=== PATIENT | female | born 1950 | race Caucasian/White ===

== ENCOUNTER 2019-08-03 14:49 | Inpatient (IN) | payer MEDICARE ==
[~2019-08-03] VITALS: Ht 152.4 cm; Wt 98.0 kg
--- OUTSIDE RECORDS SUMMARY | 2019-08-03 14:52 | XMS REPORT ---
Author Author [facility] Address Unknown Phone Unavailable Care Team Providers Care Ux Architect Name Role Phone MARCO SHAVER Unavailable Unavailable Problems This patient has no known problems. Allergies, Adverse Reactions, Alerts This patient has no known allergies or adverse reactions. Medications This patient has no known medications. Results Test Description Test Time Test Comments Text Results Atomic Results Result Comments Stress Test - Treadmill ONLY [place] [address] Patient Name : JACK HORTON MR #: [id number] : 1950 Age/Sex: 66/F Adm Physician : MARCO SHAVER MD Admit Date : Location : [place] Room/Bed : REPORT: Cardiology Report DATE OF STUDY: August 31, 2017 LEXISCAN NUCLEAR STRESS TEST INDICATION: Shortness of breath. TECHNIQUE: The patient was given 10 millicuries of Myoview. Resting images were obtained in the horizontal long axis, vertical long axis and short axis. Patient was then hooked up to the EKG machine, and Lexiscan was infused over 15 seconds. Immediately after completion of Lexiscan infusion, the patient was given 30 millicuries of Myoview. Stress images were obtained 30 minutes after completion of exercise in the horizontal long axis, vertical long axis and short axis. RESULTS 1. The resting EKG demonstrated normal sinus rhythm with some nonspecific ST and T wave changes. 2. There were no EKG changes and no symptoms during Lexiscan infusion. 3. There was some diminished perfusion to the anterior septum in both stress and rest. There was no reversible defect. 4. There were normal left ventricular size and function with an ejection fraction of 50%. CONCLUSION: The patient has a fixed defect in the anterior septum which most likely represents breast artifact. There was no reversible defect. There was no evidence of ischemia. The ejection fraction was 50%. Job#: [id number] Signature Date Dictated By: MARCO SHAVER MD Transcribed By: [facility] on 09/01/17 <Electronically signed by MARCO SHAVER MD><<Signature on File>>09/03/17 2029 COPY TO:
[2019-08-03] MEDS ORDERED: FAMOTIDINE 20 MG/2 ML VIAL IV STA (15:04)
[2019-08-03] MEDS ORDERED: SODIUM CHLORIDE 0.9% 1000ML 1,000 ML IV STA (15:04)
[2019-08-03 15:28] LABS: BASOPHILS % 0.5 % (0.0-1.0); EOSINOPHILS # (AUTO) 0.1 (0.0-0.4); EOSINOPHILS % 1.5 % (0.0-6.0); HEMATOCRIT 38.5 % (34.2-44.1); HEMOGLOBIN 12.4 g/dL (12.0-16.0); LYMPHOCYTES # (AUTO) 1.5 (1.0-3.2); LYMPHOCYTES % 23.6 % (18.0-39.1); MEAN CORPUSCULAR HEMOGLOBIN 31.2 pg (28-32); MEAN CORPUSCULAR HGB CONC 32.2 g/dL (31-35); MONOCYTES # (AUTO) 0.5 (0.2-0.8); MONOCYTES % 8.3 % (4.4-11.3); NEUTROPHILS # (AUTO) 4.3 (2.1-6.9); NEUTROPHILS % 65.6 % (38.7-80.0); PLATELET COUNT 292 x10e3/uL (140-360); RED BLOOD COUNT 3.97 x10e6/uL (3.6-5.1); RED CELL DISTRIBUTION WIDTH 14.2 % (11.7-14.4)
[2019-08-03] MEDS ORDERED: DEXTROSE 50% SYRINGE 50 ML IV PRN (15:30)
[2019-08-03] MEDS ORDERED: SODIUM CHLORIDE FLUSH 10 ML SYR INJ PRN (15:30)
[2019-08-03] MEDS ORDERED: DIGOXIN INJ 0.25 MG/ML 2 ML AMP IV ONE ×2 (15:30)
[2019-08-03 15:33] LABS: BILIRUBIN,URINE SMALL (NEGATIVE); CLARITY,URINE SL CLOUDY (CLEAR); COLOR,URINE YELLOW (YELLOW); KETONES,URINE NEGATIVE (NEGATIVE); LEUKOCYTE ESTERASE ,URINE NEGATIVE (NEGATIVE); NITRITE,URINE NEGATIVE (NEGATIVE); PROTEIN,URINE DIPSTICK 1+ (NEGATIVE); URINE UROBILINOGEN 1 mg/dL (0.2 - 1)
[2019-08-03 15:36] LABS: INR 1.12; PROTHROMBIN TIME 14.9 seconds (11.9-14.5)
[2019-08-03 15:37] LABS: PARTIAL THROMBOPLASTIN TIME 29.4 seconds (23.8-35.5)
[2019-08-03 15:45] LABS: ALBUMIN 3.3 g/dL (3.5-5.0); ANION GAP 13.5 mmol/L (8-16); BACTERIA,URINE MANY /HPF; CALCIUM 9.9 mg/dL (8.4-10.2); CREATININE, SERUM 1.19 mg/dL (0.57-1.11); EPITHELIAL CELLS,URINE MODERATE /LPF; MAGNESIUM 1.5 MG/DL (1.3-2.1); POTASSIUM 3.5 mmol/L (3.5-5.1); RENAL EPITHELIAL CELLS,URINE RARE
[2019-08-03 15:46] LABS: AMORPHOUS SEDIMENT,URINE MODERATE (FEW)
[2019-08-03 16:04] LABS: CREATINE KINASE MB 0.6 ng/mL (0-5.0); THYROID STIMULATING HORMONE 0.925 uIU/mL (0.350-4.940)
--- NOTE | 2019-08-03 17:02 | Diagnostic Imaging Report ---
EXAMINATION: CHEST SINGLE (PORTABLE) COMPARISON: None INDICATION: Hypotension, shortness of breath ^ERMD ORDER ^[id number] ^1600 ^Y DISCUSSION: Frontal view of the chest obtained at 1541 hours. HEART AND MEDIASTINUM: The heart is enlarged. Central pulmonary vasculature is prominent LINES: None. LUNGS: Lungs are well inflated. No loretta consolidation. No interstitial thickening. PLEURA: No pleural effusion or pneumothorax. BONES AND SOFT TISSUES: No focal osseous lesion. The soft tissues are normal. IMPRESSION: Cardiomegaly and mild vascular congestion. Signed by: Dr. Suleiman Briones MD on 08/03/2019 4:59 PM
[2019-08-03] MEDS ORDERED: DIGOXIN INJ 0.25 MG/ML 2 ML AMP IV SCH ×2 (18:00→21:30)
[2019-08-03] MEDS: INSULIN REGULAR, HUMAN 100 UNIT/1 ML 3ML VIAL SQ SCH ×2 (18:41→21:00)
[2019-08-03 21:05] VITALS: BP 107/57
[2019-08-03] MEDS: DIGOXIN INJ 0.25 MG/ML 2 ML AMP IV SCH (22:47)
[2019-08-03 23:38] VITALS: BP 107/57
[2019-08-03 23:47] VITALS: BP 107/57
[2019-08-04] VITALS (8 sets, daily range): BP systolic 100–121; BP diastolic 52–62
[2019-08-04] MEDS: DIGOXIN INJ 0.25 MG/ML 2 ML AMP IV SCH (03:30)
[2019-08-04 05:28] LABS: BASOPHILS % 0.3 % (0.0-1.0); EOSINOPHILS # (AUTO) 0.1 (0.0-0.4); EOSINOPHILS % 1.8 % (0.0-6.0); HEMATOCRIT 36.5 % (34.2-44.1); HEMOGLOBIN 11.5 g/dL (12.0-16.0); LYMPHOCYTES # (AUTO) 1.7 (1.0-3.2); LYMPHOCYTES % 26.5 % (18.0-39.1); MEAN CORPUSCULAR HGB CONC 31.5 g/dL (31-35); MEAN CORPUSCULAR VOLUME 98.4 fL (81-99); MONOCYTES # (AUTO) 0.5 (0.2-0.8); NEUTROPHILS # (AUTO) 3.9 (2.1-6.9); NEUTROPHILS % 62.8 % (38.7-80.0); PLATELET COUNT 268 x10e3/uL (140-360); RED BLOOD COUNT 3.71 x10e6/uL (3.6-5.1)
[2019-08-04 05:51] LABS: ALBUMIN 3.1 g/dL (3.5-5.0); ALBUMIN/GLOBULIN RATIO 1.1 (0.8-2.0); ANION GAP 14.6 mmol/L (8-16); CALCIUM 9.5 mg/dL (8.4-10.2); CREATININE, SERUM 1.08 mg/dL (0.57-1.11); POTASSIUM 3.6 mmol/L (3.5-5.1)
--- NOTE | 2019-08-04 07:21 | Diagnostic Imaging Report ---
EXAMINATION: CHEST SINGLE (PORTABLE) INDICATION: ^CHF ^[id number] ^0425 ^Y COMPARISON: 08/03/2019 FINDINGS: AP view TUBES and LINES: None. LUNGS: Lungs are well inflated. Pulmonary vascular congestion on mild interstitial edema. PLEURA: No significant pleural effusion or pneumothorax. HEART AND MEDIASTINUM: The cardiomediastinal silhouette is enlarged. BONES AND SOFT TISSUES: No acute osseous lesion. Soft tissues are unremarkable. UPPER ABDOMEN: No free air under the diaphragm. IMPRESSION: Enlarged cardiac silhouette, pulmonary vascular congestion, and mild interstitial edema, not significantly changed from prior exam. Signed by: Dr. Gil Pittman MD on 08/04/2019 7:17 AM
[2019-08-04] MEDS: INSULIN REGULAR, HUMAN 100 UNIT/1 ML 3ML VIAL SQ SCH ×4 (07:30→21:00)
--- NOTE | 2019-08-04 08:13 | NUR ---
H&P cc: rapid HR HPI: 68yoF, PCP , developed A.fib with RVR. Pt also conplained of SOB. [facility]. PMH: Severe obesity, CHF, DM2, peripheral edema PSHx: stomach, c-sec, hysterectomy Allergies; see MAR FH/SH; single; no cigs meds; see MAR ROS; no f/c/s/N/V/D/HYDE/vision changes/back pain/dizziness/skin rash. v/s; revd PE: tired appearing anicteric ns1s2 Slightly reduced breath sounds soft nt nd no e/t a&ox3; fair skin dry n. affect labs/meds revd A/P: 68yoF A.fib with RVR KALEB AECHF Severe obesity BMI 42.2 Pulmonary edema PLAN dig; f/u cardio eval; lovenox; bid check echo pepcid on AC Fer Robins MD, PhD
[2019-08-04] MEDS: FAMOTIDINE 20 MG TAB PO SCH ×2 (09:00→16:30)
[2019-08-04] MEDS: DIGOXIN 0.25 MG TAB PO SCH (09:00)
[2019-08-04] MEDS: ENOXAPARIN INJ 80 MG/0.8 ML SYR SC SCH ×2 (09:00→21:40)
[2019-08-04 09:08] LABS: CHOL/HDL RATIO 5.3 (3.0-3.6)
--- NOTE | 2019-08-04 09:13 | NUR ---
Nutrition Screen Note RD Recommendation for Physician: -Continue current diet per MD. -Consider ADA 1800 calorie carb diet pending glucose trends. Plan of Care: RD following, monitoring for tolerance and adequacy. Nutrition reason for involvement: Nutrition Risk Trigger-MST 2 Primary Diagnose(s): Afib PMH: HTN, DM Ht: 60 in Wt:216 lb BMI: 42.2 kg/m2 IBW: [address] Assessment: 08/04: 68 YOF admitted for Afib with PMH listed above. Pt was seen d/t MST of 2. Pt was seen consuming her breakfast. Pt reported she really enjoyed the meatloaf and potatoes last night, suggesting the pt is meeting energy and protein needs. Pt denied poor appetite and any unintentional weight loss recently, no past weights in EMR. Pt reported no N/V/C/D/chewing or swallowing issues as well as any food allergies. Pt had no other questions or concerns. Pt just arrived yesterday, there are no notes written in EMR yet. LBM: 08/04. Chart reviewed. Labs and meds reviewed. A1c is pending. Pt is on insulin. Will continue to monitor. Current Diet: cardiac Malnutrition Evaluation (08/04) The patient does not meet criteria for a specified degree of malnutrition at this time. Will re-evaluate at follow-up as appropriate. Diet Education Needs Assessment: Diet education not indicated. Nutrition Care Level: low Signed: Chantell Cortez, RD, LD
[2019-08-04] MEDS ORDERED: ACETAMINOPHEN 325 MG TAB PO PRN (11:00)
[2019-08-04 13:09] LABS: CREATINE KINASE MB 1.2 ng/mL (0-5.0)
[2019-08-04] MEDS ORDERED: ATENOLOL50 MG PO (14:55)
[2019-08-04] MEDS ORDERED: FUROSEMIDE40 MG PO (14:55)
[2019-08-04] MEDS ORDERED: CALCIUM CITRAT1 EA10 PO (14:55)
[2019-08-04] MEDS ORDERED: LOVASTATIN10 MG PO (14:55)
[2019-08-04] MEDS ORDERED: LEVOTHYROXINE75 MCG PO (14:55)
[2019-08-04] MEDS ORDERED: METFORMIN HCL500 MG PO (14:55)
[2019-08-04] MEDS ORDERED: MELOXICAM7.5 MG PO (14:55)
[2019-08-04] MEDS ORDERED: SERTRALINE HCL50 MG PO (14:55)
[2019-08-04] MEDS ORDERED: POTASSIUM CHLO10 ME1 PO (14:56)
--- NOTE | 2019-08-04 18:01 | NUR ---
Rounds by [employer] Forest[employer] Supervisor and started patient on lasix and a beta lauro, EF 35% from echo, educated on cardiac diet and dietary precautions, will monitor, call light within reach, no c/o pains, still in Afib but no adverse events, rate controlled on Digoxin by mouth, no SOB, participated with PT and with some low saturation with exertion but 95% at rest, will monitor.
[2019-08-05] VITALS (9 sets, daily range): BP systolic 106–121; BP diastolic 56–81
--- NOTE | 2019-08-05 01:32 | Consultation ---
DATE OF CONSULTATION: 08/04/2019 Cardiology Consult Note REASON FOR CONSULT: Atrial fibrillation with rapid ventricular response and shortness of breath. CHIEF COMPLAINT: Palpitations and shortness of breath. HISTORY OF PRESENT ILLNESS: The patient is a 68-year-old female with a history of chronic systolic CHF, EF 30% and paroxysmal atrial fibrillation, who was sent to the ER from the office due to atrial fibrillation with RVR and blood pressures in the 70s systolic. She was treated with IV digoxin and her heart rate improved significantly. Troponin is negative. BNP was over 1000. Mild KALEB, which has now resolved. She denies any chest pain or shortness of breath. Feeling much better today. Asking us if she can go home. Blood pressure improved to about 100 to 120 systolic. REVIEW OF SYSTEMS: As per HPI, otherwise negative. OUTPATIENT MEDICATIONS: Reviewed. Please see MAR. ALLERGIES: NO KNOWN DRUG ALLERGIES. SOCIAL HISTORY: She does not smoke, drink, or abuse drugs. FAMILY HISTORY: Noncontributory. OBJECTIVE: VITAL SIGNS: Temperature afebrile, pulse 71, respiratory rate 16, blood pressure 121/57, and saturating 97% on 3 L nasal cannula. GENERAL: Well developed, well nourished, in no acute distress. CARDIOVASCULAR: Irregular rate and rhythm. No murmurs, rubs, or gallops. LUNGS: Clear to auscultation bilaterally. ABDOMEN: Soft, nontender, and nondistended. NEURO AND PSYCH: Alert and oriented to person, place, and time. Normal affect. INPATIENT MEDICATIONS: Reviewed. LABORATORY DATA: Reviewed. TELEMETRY DATA: Reviewed. Shows rate controlled atrial fibrillation. IMAGING DATA: Reviewed. Chest x-ray showed an enlarged cardiovascular silhouette and pulmonary vascular congestion. ASSESSMENT AND PLAN: 1. Atrial fibrillation with rapid ventricular response. 2. Acute on chronic systolic heart failure exacerbation. 3. Pulmonary edema. 4. Hypertension. PLAN: Atrial fibrillation is now better controlled after IV digoxin. Continue oral digoxin. Resume her home atenolol, metoprolol-XL. Gentle IV furosemide for diuresis now that her blood pressure is improved. Echocardiogram has been performed. Results are pending. Thank you for this consult. We will continue to follow. MD KAREN Blackmon/ANTWON /[id number]
[2019-08-05] MEDS: FAMOTIDINE 20 MG TAB PO SCH ×2 (07:30→16:59)
[2019-08-05] MEDS: INSULIN REGULAR, HUMAN 100 UNIT/1 ML 3ML VIAL SQ SCH ×4 (07:30→21:00)
--- NOTE | 2019-08-05 07:53 | NUR ---
Patient alert and responsive, checked off oxygen this morning and desaturation to 87/88% on RA with exertion, some shortness of breath which resolves with rest, will monitor.
--- NOTE | 2019-08-05 08:15 | NUR ---
IM- progress note O/N no events ROS; no f/c/s/N/V/D/HYDE/vision changes/back pain/dizziness/skin rash. v/s; revd PE: tired appearing anicteric ns1s2 Slightly reduced breath sounds soft nt nd no e/t a&ox3; fair skin dry n. affect labs/meds revd A/P: 68yoF A.fib with RVR KALEB AECHF Severe obesity BMI 42.2 Pulmonary edema PLAN dig; f/u cardio eval; lovenox; bid check echo pepcid on AC 08/05 Hba1c/LDL 5.7/90. DM well controlled; continue diuresis. Change statin; Fer Robins MD, PhD
[2019-08-05] MEDS: LEVOTHYROXINE SODIUM 75 MCG TAB PO SCH (08:30)
[2019-08-05] MEDS: SERTRALINE HCL 50 MG TAB PO SCH (09:00)
[2019-08-05] MEDS: ENOXAPARIN INJ 80 MG/0.8 ML SYR SC SCH ×2 (09:00→21:30)
[2019-08-05] MEDS ORDERED: METOPROLOL SUCCINATE 25 MG TAB XL PO SCH (09:00)
[2019-08-05] MEDS: DIGOXIN 0.25 MG TAB PO SCH (09:00)
[2019-08-05] MEDS ORDERED: FUROSEMIDE INJ 10 MG/ML 2 ML VIAL IV SCH (09:00)
[2019-08-05 10:13] LABS: BASOPHILS % 0.6 % (0.0-1.0); EOSINOPHILS # (AUTO) 0.2 (0.0-0.4); EOSINOPHILS % 2.5 % (0.0-6.0); HEMATOCRIT 38.2 % (34.2-44.1); HEMOGLOBIN 11.9 g/dL (12.0-16.0); LYMPHOCYTES # (AUTO) 1.7 (1.0-3.2); LYMPHOCYTES % 26.3 % (18.0-39.1); MEAN CORPUSCULAR HEMOGLOBIN 31.2 pg (28-32); MEAN CORPUSCULAR HGB CONC 31.2 g/dL (31-35); MEAN CORPUSCULAR VOLUME 100.3 fL (81-99); MONOCYTES # (AUTO) 0.6 (0.2-0.8); MONOCYTES % 9.8 % (4.4-11.3); NEUTROPHILS # (AUTO) 3.8 (2.1-6.9); NEUTROPHILS % 59.7 % (38.7-80.0); PLATELET COUNT 276 x10e3/uL (140-360); RED BLOOD COUNT 3.81 x10e6/uL (3.6-5.1); RED CELL DISTRIBUTION WIDTH 14.1 % (11.7-14.4)
[2019-08-05 10:30] LABS: ANION GAP 15.1 mmol/L (8-16); CALCIUM 9.7 mg/dL (8.4-10.2); CREATININE, SERUM 1.02 mg/dL (0.57-1.11); POTASSIUM 4.1 mmol/L (3.5-5.1)
[2019-08-05 12:07] LABS: EOSINOPHILS % (MANUAL) 9 % (0-7); LYMPHOCYTES % (MANUAL) 25 % (19-48); MONOCYTES % (MANUAL) 9 % (3.4-9.0); NEUTROPHILS % (MANUAL) 55 % (40-74); RBC MORPHOLOGY COMMENT ABNORMAL
[2019-08-05 12:08] LABS: ANISOCYTOSIS SLIGHT; PLATELET ESTIMATE ADEQUATE; PLATELET MORPHOLOGY COMMENT NORMAL
--- NOTE | 2019-08-05 15:25 | Progress Note ---
DATE: 08/05/2019 Cardiology Progress Note SUBJECTIVE: The patient denies chest pain. She is complaining of dyspnea on exertion. OBJECTIVE: VITAL SIGNS: Temperature of 98.2 degrees, pulse 87, respiratory rate 18, blood pressure 121/81, and oxygen saturation 97% on room air. GENERAL: Awake, alert, in no acute distress. LUNGS: Clear to auscultation bilaterally. No wheezes or crackles. CARDIOVASCULAR: Normal rate. Irregularly irregular. No murmur. Normal S1, S2. ABDOMEN: Soft, nontender. EXTREMITIES: 1+ pitting edema. CARDIAC MEDICATIONS: 1. Furosemide 20 mg IV daily. 2. Metoprolol succinate 25 mg p.o. daily. 3. Digoxin 0.25 mg p.o. daily. 4. Levothyroxine 75 mcg p.o. daily. 5. Atorvastatin 40 mg p.o. at bedtime. LABORATORY DATA: WBC 6.3, hemoglobin 11.9, hematocrit 38.2, platelets 276. Sodium 142, potassium 4.1, chloride 108, CO2 of 24, BUN 13, creatinine 1.02. TELEMETRY: Atrial fibrillation. IMPRESSION: 1. Atrial fibrillation. 2. Ycgnb-[id number]-tfymmyw systolic heart failure. 3. Hypertension. RECOMMENDATIONS: Continue current cardiac medications. Increase metoprolol. Increase frequency of IV Lasix. Thank you for this consult. We will continue to follow. Xuan Chandler MD ABS/MODL /[id number]
[2019-08-05] MEDS: FUROSEMIDE INJ 10 MG/ML 2 ML VIAL IV SCH (16:59)
[2019-08-05] MEDS: ATORVASTATIN 20 MG TAB PO SCH (21:30)
--- NOTE | 2019-08-05 22:00 | NUR ---
Assessment done.no resp.distress.no pain voiced.iv to right ac #18g is patent.bed locked and in lowest position.phone and call light within reach.instructed to al for assistance as needed.
[2019-08-06] VITALS (8 sets, daily range): BP systolic 99–115; BP diastolic 58–63
[2019-08-06] MEDS: LEVOTHYROXINE SODIUM 75 MCG TAB PO SCH (05:48)
--- NOTE | 2019-08-06 06:58 | NUR ---
Bed side shift report given to the oncoming Rn.stable condition.
--- NOTE | 2019-08-06 07:12 | NUR ---
Received patient and a/ox3, in bed, no resp distress, call light within reach, o2 in place at 2 L, will monitor.
[2019-08-06] MEDS: FAMOTIDINE 20 MG TAB PO SCH ×2 (07:30→16:30)
[2019-08-06] MEDS: INSULIN REGULAR, HUMAN 100 UNIT/1 ML 3ML VIAL SQ SCH ×4 (07:30→20:56)
[2019-08-06] MEDS: ENOXAPARIN INJ 80 MG/0.8 ML SYR SC SCH ×2 (09:31→21:16)
[2019-08-06] MEDS: FUROSEMIDE INJ 10 MG/ML 2 ML VIAL IV SCH ×2 (09:31→17:00)
[2019-08-06] MEDS: DIGOXIN 0.25 MG TAB PO SCH (09:31)
[2019-08-06] MEDS: METOPROLOL SUCCINATE 25 MG TAB XL PO SCH (09:31)
[2019-08-06] MEDS: SERTRALINE HCL 50 MG TAB PO SCH (09:31)
[2019-08-06] MEDS ORDERED: ONDANSETRON HCL INJ 2MG/ML 2ML 2 MG/ML VIAL IV PRN (11:00)
[2019-08-06 14:56] LABS: ANION GAP 16.2 mmol/L (8-16); CREATININE, SERUM 1.3 mg/dL (0.57-1.11); POTASSIUM 4.2 mmol/L (3.5-5.1)
--- NOTE | 2019-08-06 16:01 | Progress Note ---
DATE: 08/06/2019 Cardiology Progress Note SUBJECTIVE: The patient denies chest pain or shortness of breath. OBJECTIVE: VITAL SIGNS: Temperature 95.7 degrees, pulse 79, respiratory rate 18, blood pressure 104/58, oxygen 95% on room air. GENERAL: Awake, alert in no acute distress. LUNGS: Clear to auscultation bilaterally. No wheezes or crackles. CARDIOVASCULAR: Normal rate, irregularly irregular. No murmur. Normal S1, S2. ABDOMEN: Soft, nontender. EXTREMITIES: Trace edema. CARDIAC MEDICATIONS: Metoprolol succinate 50 mg p.o. daily, furosemide 20 mg IV b.i.d., enoxaparin 80 mg subcu q.12 hours, digoxin 0.25 mg p.o. daily, levothyroxine 75 mcg p.o. daily, atorvastatin 40 mg p.o. at bedtime. LABORATORY DATA: None today. TELEMETRY: Atrial fibrillation. IMPRESSION: 1. Atrial fibrillation. 2. Acute on chronic systolic heart failure. 3. Hypertension. RECOMMENDATIONS: Continue current cardiac medications. Monitor closely on telemetry. Follow creatinine. Replete electrolytes. Thank you for this consult. We will continue to follow. Xuan Chandler MD ABS/MODL /[id number]
--- NOTE | 2019-08-06 16:34 | NUR ---
IM- progress note O/N no events ROS; no f/c/s/N/V/D/HYDE/vision changes/back pain/dizziness/skin rash. v/s; revd PE: tired appearing anicteric ns1s2 Slightly reduced breath sounds soft nt nd no e/t a&ox3; fair skin dry n. affect labs/meds revd A/P: 68yoF A.fib with RVR KALEB AECHF Severe obesity BMI 42.2 Pulmonary edema PLAN dig; f/u cardio eval; lovenox; bid check echo pepcid on AC 08/05 Hba1c/LDL 5.7/90. DM well controlled; continue diuresis. Change statin; 08/06 HR controlled; doing ok; still desats on exertion; continue diuresis; get renal U/S. Fer Robins MD, PhD
--- NOTE | 2019-08-06 19:10 | NUR ---
BED SIDE SHIFT REPORT TAKEN FROM MORNING ALYCE IN THE BED.STABLE CONDITION.
--- NOTE | 2019-08-06 20:28 | Diagnostic Imaging Report ---
EXAM: Renal Ultrasound INDICATION: ^KALEB vs CKD COMPARISON: None TECHNIQUE: Transverse and longitudinal images of the kidneys and bladder were obtained. FINDINGS: Right Kidney: Size: 9 cm Echogenicity: Normal Parenchymal thickness: Normal Collecting system: No hydronephrosis Stones: None Cyst/Mass: None Left Kidney: Size: 10.8 cm Echogenicity: Normal Parenchymal thickness: Normal Collecting system: No hydronephrosis Stones: None Cyst/Mass: None Bladder: Collapsed by a Mcintosh catheter in place. IMPRESSION: Unremarkable renal ultrasound exam. Signed by: Dr. Gil Pittman MD on 08/06/2019 8:25 PM
[2019-08-06] MEDS: ATORVASTATIN 20 MG TAB PO SCH (21:16)
[2019-08-07] VITALS: BP 106/68
--- NOTE | 2019-08-07 00:26 | NUR ---
Sleeping in the bed.Us renal done.no resp.distress.no pain voiced.bed locked and in lowest position.phone and call light within reach.instructed to call for assistance as needed.
[2019-08-07 04:00] VITALS: BP 114/66
[2019-08-07] MEDS: LEVOTHYROXINE SODIUM 75 MCG TAB PO SCH (05:46)
--- NOTE | 2019-08-07 07:00 | NUR ---
BEDSIDE ROUNDS COMPLETE NO DISTRESS NOTED, UPDATED ON POC VOICED UNDERSTANDING, DENIES PAIN AT THIS TIME, R AC 18G NO SS OF INFILTRATION NOTED, NO OTHER CO VOICED CALL LIGHT IN REACH WILL CONTINUE TO MONITOR
--- NOTE | 2019-08-07 07:00 | NUR ---
Bed side shift report given to the oncoming Rn.stable condition.
--- NOTE | 2019-08-07 07:29 | NUR ---
D/C summary Principal Dx: A.fib with RVR KALEB AECHF Pulmonary edema Likely CKD3 (normal renal U/S.) Secondary Dx: Severe obesity BMI 42.2 PLAN dig; f/u cardio eval; lovenox; bid check echo pepcid on AC 08/05 Hba1c/LDL 5.7/90. DM well controlled; continue diuresis. Change statin; 08/06 HR controlled; doing ok; still desats on exertion; continue diuresis; get renal U/S. 08/07 renal U/S unremarkable; check renal fn with BMP; cont care; d/c home f/u pcp 1 week and 1 week stable d/c>35mins Fer Robins MD, PhD
[2019-08-07] MEDS: INSULIN REGULAR, HUMAN 100 UNIT/1 ML 3ML VIAL SQ SCH ×2 (07:30→11:30)
--- NOTE | 2019-08-07 07:50 | NUR ---
PT AMBULATED IN HALLS PER MD REQUEST, O2 SATS WHILE AMBULATING 88%, HR 88-103, ONCE PT STOPS AMBULATING O2 SATS RECOUPE TO 98% RA, INFORMED DR MCDONOUGH, NO NEW ORDERS AT THIS TIME.
[2019-08-07] MEDS ORDERED: LANOXIN250 MCG PO (08:09)
[2019-08-07] MEDS ORDERED: TOPROL XL25 MG PO (08:09)
[2019-08-07] MEDS ORDERED: LIPITOR20 MG PO (08:09)
[2019-08-07] MEDS ORDERED: ELIQUIS5 M1 PO (08:11)
[2019-08-07 08:29] VITALS: BP 123/67
[2019-08-07] MEDS: FAMOTIDINE 20 MG TAB PO SCH (08:32)
[2019-08-07] MEDS: SERTRALINE HCL 50 MG TAB PO SCH (08:33)
[2019-08-07] MEDS: ENOXAPARIN INJ 80 MG/0.8 ML SYR SC SCH (08:33)
[2019-08-07] MEDS: FUROSEMIDE INJ 10 MG/ML 2 ML VIAL IV SCH (08:33)
[2019-08-07] MEDS: DIGOXIN 0.25 MG TAB PO SCH (08:34)
[2019-08-07] MEDS: METOPROLOL SUCCINATE 25 MG TAB XL PO SCH (08:34)
[2019-08-07 08:37] VITALS: BP 123/67
[2019-08-07 09:08] LABS: ANION GAP 16.4 mmol/L (8-16); CALCIUM 10.2 mg/dL (8.4-10.2); CREATININE, SERUM 1.14 mg/dL (0.57-1.11); POTASSIUM 4.4 mmol/L (3.5-5.1)
--- NOTE | 2019-08-07 09:54 | NUR ---
PAGED DR LEWIS RE: CLEARANCE FOR DISCHARGE AWAITING CALLBACK
--- NOTE | 2019-08-07 10:09 | NUR ---
SPOKE WITH DR MCDONOUGH RE: BUN RESULTS PER REQUESTED, INFORMED NURSE TO HAVE PT FOLLOW UP WITH DR BOX OUTPATIENT DUE TO GFR OF 47 WILL PROVIDE INFORMATION. STILL AWAITING FOR DR LEWIS TO RETURN CALL
--- NOTE | 2019-08-07 11:15 | NUR ---
DR DEBBIE JAY FOR DISCHARGE CLEARANCE PER ORDERED
[2019-08-07 12:42] VITALS: BP 126/60
== END 2019-08-07 15:23 | disposition home or self-care (01) | DRG 308 ==
LOC: ER 14:49 → ERHOLD 15:28 → MED/SURG 21:15
PROVIDERS: ADMIT Internal Medicine; ATTEND Internal Medicine
DX: I48.91 Unspecified atrial fibrillation (principal); I50.23 Acute on chronic systolic (congestive) heart failure; N18.4 Chronic kidney disease, stage 4 (severe); N17.9 Acute kidney failure, unspecified; I13.0 Hypertensive heart and chronic kidney disease with heart failure and stage 1 through stage 4 chronic kidney disease, or unspecified chronic kidney disease; Z68.41 Body mass index [BMI] 40.0-44.9, adult; E66.01 Morbid (severe) obesity due to excess calories
CPT/HCPCS: 36415; 71045; 76770; 80048; 80053; 80061; 81001; 82550; 82553; 82948; 83036; 83690; 83735; 83880; 84443; 84484; 85025; 85610; 85730; 87086; 93005; 93306; 99284; J1160; J1650; J1940; J2405; J7030

== ENCOUNTER 2019-09-07 15:24 | Inpatient (IN) | payer MEDICARE ==
[~2019-09-07] VITALS: Ht 152.4 cm; Wt 93.9 kg
[~2019-09-07 15:24] MED LIST: ATENOLOL50 MG PO; CALCIUM CITRAT1 EA10 PO; ELIQUIS5 M1 PO; FUROSEMIDE40 MG PO; LANOXIN250 MCG PO; LEVOTHYROXINE75 MCG PO; LIPITOR20 MG PO; LOVASTATIN10 MG PO; MELOXICAM7.5 MG PO; METFORMIN HCL500 MG PO; POTASSIUM CHLO10 ME1 PO; SERTRALINE HCL50 MG PO; TOPROL XL25 MG PO
[2019-09-07 19:26] LABS: EOSINOPHILS % 0.2 % (0.0-6.0); HEMATOCRIT 40.9 % (34.2-44.1); HEMOGLOBIN 12.9 g/dL (12.0-16.0); LYMPHOCYTES % 2.2 % (18.0-39.1); MEAN CORPUSCULAR HEMOGLOBIN 30.4 pg (28-32); MEAN CORPUSCULAR HGB CONC 31.5 g/dL (31-35); MEAN CORPUSCULAR VOLUME 96.2 fL (81-99); MONOCYTES % 0.6 % (4.4-11.3); NEUTROPHILS % 4.2 % (38.7-80.0); PLATELET COUNT 257 x10e3/uL (140-360); RED BLOOD COUNT 4.25 x10e6/uL (3.6-5.1)
[2019-09-07 19:42] LABS: INR 1.16; PARTIAL THROMBOPLASTIN TIME 30.8 seconds (23.8-35.5); PROTHROMBIN TIME 15.4 seconds (11.9-14.5)
[2019-09-07 19:47] LABS: CREATINE KINASE MB 2.8 ng/mL (0-5.0)
[2019-09-07 20:12] LABS: POTASSIUM 3.2 mmol/L (3.5-5.1)
[2019-09-07 20:13] LABS: ANION GAP 18.2 mmol/L (8-16); CALCIUM 8.7 mg/dL (8.4-10.2); CREATININE, SERUM 1.09 mg/dL (0.57-1.11)
[2019-09-07 20:15] LABS: ALBUMIN 3.7 g/dL (3.5-5.0); ALBUMIN/GLOBULIN RATIO 1.1 (0.8-2.0)
--- NOTE | 2019-09-07 20:41 | Diagnostic Imaging Report ---
EXAM: CHEST 2 VIEWS DATE: 09/07/2019 6:41 PM INDICATION: ^SEPSIS ^Y COMPARISON: Chest x-ray, 08/04/2019 FINDINGS: Lines and tubes: None Cardiac silhouette is moderately enlarged. There is mild central pulmonary vascular prominence. No peripheral consolidation or pleural effusion. Upper abdomen unremarkable. No acute bony abnormality. IMPRESSION: Cardiomegaly and central pulmonary vascular prominence again noted. Signed by: Dr. Jairon Lorenzo M.D. on 09/07/2019 8:38 PM
[2019-09-07] MEDS ORDERED: SODIUM CHLORIDE 0.9% 500ML 1,000 ML ONE (21:02)
[2019-09-07] MEDS ORDERED: ASPIRIN 81 MG CHEW TAB PO ONE (21:15)
[2019-09-07 21:23] LABS: CREATINE KINASE MB 2.7 ng/mL (0-5.0)
--- NOTE | 2019-09-07 22:53 | Diagnostic Imaging Report ---
EXAM: CTA Chest WITH contrast (PE protocol) 09/07/2019 8:48 PM INDICATION: sob COMPARISON: Chest radiograph 09/07/2019 TECHNIQUE: Chest was scanned utilizing a multidetector helical scanner from the lung apex through the level of the adrenal glands without administration of IV contrast. Coronal and sagittal reformations were obtained. Pulmonary embolism protocol was performed. Specific attention to the pulmonary arteries. Thin slice reformats were created. IV CONTRAST: 72 mL of Isovue 370 COMPLICATIONS: None RADIATION DOSE: Total DLP: 588 mGy*cm Estimated effective dose: (DLP x 0.014 x size factor) mSv CTDIvol has been reviewed. It is below the limits set by the Radiation Protocol Committee (RPC). Dose modulation, iterative reconstruction, and/or weight based adjustment of the mA/kV was utilized to reduce the radiation dose to as low as reasonably achievable. FINDINGS: LINES/ TUBES: None. LUNGS AND AIRWAYS: Mosaic attenuation throughout the lungs. Mild interlobular septal thickening in the lower lungs. Mild smooth bronchial wall thickening primarily in the lower lungs, with scattered foci of endobronchial mucus plugging. PLEURA: The pleural spaces are clear. HEART AND MEDIASTINUM: The thyroid gland is normal. Moderate cardiomegaly, with by atrial and left ventricular dilation Left main coronary artery calcifications. Trace pericardial fluid. Dilated main pulmonary artery, 3.7 cm in diameter. Prominent pulmonary vasculature. Aortic valve calcifications. UPPER ABDOMEN: Intact gastric surgical changes. Small hiatal hernia with mild distal esophageal wall thickening. BONES: There are degenerative changes in the thoracic spine. SOFT TISSUES: Unremarkable. IMPRESSION: 1. Moderate cardiomegaly, trace pericardial effusion, with pulmonary hypertension. Left main coronary artery calcific atherosclerosis. 2. Lung findings can be due to pulmonary edema and/or distal airway disease. 3. Mild findings of bronchitis. 4. Small hiatal hernia with mild distal esophagitis. 5. No pulmonary embolism. Signed by: Gamal Mtz DO on 09/07/2019 10:49 PM
[2019-09-07 23:35] LABS: BILIRUBIN,URINE NEGATIVE (NEGATIVE); CLARITY,URINE SL CLOUDY (CLEAR); COLOR,URINE YELLOW (YELLOW); KETONES,URINE NEGATIVE (NEGATIVE); LEUKOCYTE ESTERASE ,URINE NEGATIVE (NEGATIVE); NITRITE,URINE NEGATIVE (NEGATIVE); PROTEIN,URINE DIPSTICK NEGATIVE (NEGATIVE); URINE UROBILINOGEN 1 mg/dL (0.2 - 1)
[2019-09-08] VITALS (8 sets, daily range): BP systolic 83–110; BP diastolic 46–69
[2019-09-08 00:08] LABS: BACTERIA,URINE FEW /HPF; EPITHELIAL CELLS,URINE FEW /LPF; RBC,URINE 0-5 /HPF (0-5); WBC,URINE (MAN) 0-5 /HPF (0-5)
[2019-09-08 01:00] LABS: CHOL/HDL RATIO 3.4 (3.0-3.6)
[2019-09-08 01:11] LABS: CREATINE KINASE MB 2.7 ng/mL (0-5.0)
--- NOTE | 2019-09-08 01:20 | NUR ---
RECEIVED PATIENT FROM ED AT THIS TIME. PATIENT ARRIVED VIA STRETCHER, BUT AMBULATED TO BED INDEPENDENTLY, STEADY GAIT NOTED. NO PAIN REPORTED. NO S&S OF DISTRESS NOTED. LUNG SOUNDS CLEAR. BOWEL SOUNDS ACTIVE, LAST BM YESTERDAY MORNING (09/08). NO EDEMA NOTED. SKIN IS INTACT. TELE BOX 29, PATIENT RUNNING AFIB - 58. NO NEEDS EXPRESSED AT THIS TIME. PATIENT ORIENTED TO ROOM AND CALL LIGHT SYSTEM. BED LOCKED IN LOWEST POSITION, SIDE RAILS UPX2, CALL LIGHT IN REACH.
[2019-09-08] MEDS ORDERED: MELOXICAM7.5 MG PO (01:39)
[2019-09-08] MEDS ORDERED: ENTRESTO 24 MG1 EACH PO (01:42)
[2019-09-08] MEDS ORDERED: LOVASTATIN10 MG PO (01:42)
[2019-09-08] MEDS ORDERED: FUROSEMIDE40 MG PO (01:42)
[2019-09-08] MEDS ORDERED: ELIQUIS5 MG PO (01:42)
[2019-09-08] MEDS ORDERED: DIGOXIN250 MCG PO (01:42)
[2019-09-08] MEDS ORDERED: METOPROLOL SUCC25 MG PO (01:42)
[2019-09-08] MEDS ORDERED: IOPAMIDOL 370 MG/ML 200 ML INFUS..BTL INJ ONE (03:09)
[2019-09-08] MEDS ORDERED: SODIUM CHLORIDE 0.9% 100 ML ONE (03:09)
--- NOTE | 2019-09-08 06:12 | NUR ---
H&P cc: rapid HR HPI: 68yoF, PCP , developed rapid heart rate, low BP and SOB with ambulatoin; SBP 70/40 at home; Some dizziness. PMH: Severe obesity, Disastolic CHF, DM2, peripheral edema, KALEB, PAF, CKD3? PSHx: stomach, c-sec, hysterectomy Allergies; see MAR FH/SH; single; no cigs meds; see MAR ROS; no f/c/s/N/V/D/HYDE/vision changes/back pain/dizziness/skin rash. v/s; revd PE: tired appearing anicteric ns1s2 Mod BS soft nt nd no e/t a&ox3; fair skin dry n. affect labs/meds revd A/P: 68yoF Elevated troponins PAF CKD3 due to DM2 Morbid obesity BMI 40.4 Hypotension Diastolic CHF PLAN Trend enzymes; Last echo normal LVEF hab1c/lipids check Dig level Heparin/pepcid Fer Robins MD, PhD
[2019-09-08] MEDS ORDERED: HEPARIN SOD (PORCINE) 5,000 UNIT/ML VIAL SC SCH (06:45)
[2019-09-08 06:57] LABS: CREATINE KINASE MB 1.5 ng/mL (0-5.0)
--- NOTE | 2019-09-08 07:00 | NUR ---
bedside shift report received pt in stable condition, denies chest pain at this time, r ac 20g and l fa 20g no ss of infiltration noted, no other co voiced call light in reach will continue to monitor
[2019-09-08] MEDS ORDERED: NON-FORMULARY MEDICATION (Lovastatin 10 MG) PO SCH (09:00)
[2019-09-08] MEDS ORDERED: FUROSEMIDE 40 MG TAB PO SCH (09:00)
[2019-09-08] MEDS: FAMOTIDINE 20 MG TAB PO SCH ×2 (09:50→17:02)
[2019-09-08] MEDS: LEVOTHYROXINE SODIUM 75 MCG TAB PO SCH (10:19)
[2019-09-08] MEDS: APIXABAN 5 MG TABLET PO SCH (10:19)
[2019-09-08] MEDS: ASPIRIN 325 MG TAB EC PO SCH (10:19)
[2019-09-08] MEDS: FUROSEMIDE 20 MG TAB PO SCH (10:20)
[2019-09-08] MEDS: SERTRALINE HCL 50 MG TAB PO SCH (10:20)
--- NOTE | 2019-09-08 19:21 | NUR ---
WALKING ROUNDS PERFORMED, RECEIVED PT LAYING SEMI FOWLERS IN BED, AAOX3, RR EVEN AND NON-LABORED, ON ROOM AIR. NO S/SX OF DISTRESS NOTED. LEFT PT LAYING SEMI FOWLERS IN BED, BED IN LOW LOCKED POSITION, SIDE RAILS UPX2, CALL LIGHT AND PHONE WITHIN REACH.
--- NOTE | 2019-09-08 20:45 | NUR ---
REPORT GIVEN TO JOSPEH FOR CONTINUED CARE OF PATIENT.
[2019-09-08] MEDS ORDERED: ATORVASTATIN 20 MG TAB PO SCH (21:00)
[2019-09-08] MEDS: ATORVASTATIN 40 MG TAB PO SCH (21:52)
[2019-09-09] VITALS (7 sets, daily range): BP systolic 96–107; BP diastolic 48–63
--- NOTE | 2019-09-09 00:42 | Consultation ---
DATE OF CONSULTATION: Cardiology Consultation HISTORY OF PRESENT ILLNESS: This is a 68-year-old woman with history of diastolic congestive heart failure, paroxysmal atrial fibrillation, morbid obesity, chronic kidney disease, and diabetes mellitus, who presented from her PCP due to low heart rate and low blood pressure. She reports some shortness of breath. Denies any typical angina. Upon arrival here, she was noted to have elevated troponins with a peak level of 0.504. REVIEW OF SYSTEMS: A 12-point review of system was conducted, is negative except as stated above in the HPI. PAST MEDICAL HISTORY: As stated in HPI. PAST SURGICAL HISTORY: None recent. PAST FAMILY HISTORY: Noncontributory. SOCIAL HISTORY: No illicit drug, alcohol, or tobacco use. ALLERGIES: NO KNOWN DRUG ALLERGIES. MEDICATIONS: See medications reconciliation form. PHYSICAL EXAMINATION: VITAL SIGNS: Temperature is 97.4, heart rate is 59, respirations are 20, blood pressure is 110/56, ox saturation 94% on room air. GENERAL: Well appearing, no apparent distress. CARDIOVASCULAR: Irregular, bradycardic. No murmurs. LUNGS: Clear to auscultation. ABDOMEN: Soft, obese, nontender. EXTREMITIES: Edema. VASCULAR: Diminished pulses. SKIN: Warm, dry and intact. NEUROLOGIC: No focal deficits noted. Cranial nerves are grossly intact. PSYCHIATRIC: Normal mood and affect. LABORATORY DATA: All laboratory data reviewed. Troponins down trended to 0.94. IMPRESSION: 1. Abnormal cardiac enzymes. 2. Paroxysmal atrial fibrillation. 3. Morbid obesity. 4. Chronic diastolic heart failure. 5. Hypertension with current hypotension. RECOMMENDATIONS: Continue current cardiovascular medications including anticoagulation. Given she has not had a stress test in many years, we will recommend nuclear stress test. No need for repeat echocardiogram as her ejection fraction is 50% to 55%. We will monitor blood pressure, heart rate, and titrate cardiovascular medications as tolerated. DO JORDAN Peter/MODL /[id number]
[2019-09-09] MEDS: LEVOTHYROXINE SODIUM 75 MCG TAB PO SCH (05:58)
--- NOTE | 2019-09-09 07:00 | NUR ---
BEDSIDE SHIFT REPOT RECEIVED PT IN STABLE CONDITION, DENIES PAIN AT THIS TIME, CALL LIGHT IN REACH WILL CONTINUE TO MONITOR
--- NOTE | 2019-09-09 09:10 | NUR ---
spoke with finishing technician re: pt had a run of vtach, pt sitting up in bed voices no co vs 124/73,62, paged dr hwang awaiting call back
[2019-09-09] MEDS: FAMOTIDINE 20 MG TAB PO SCH ×2 (09:13→16:09)
[2019-09-09] MEDS: APIXABAN 5 MG TABLET PO SCH (09:13)
[2019-09-09] MEDS: ASPIRIN 325 MG TAB EC PO SCH (09:13)
[2019-09-09] MEDS: SERTRALINE HCL 50 MG TAB PO SCH (09:14)
--- NOTE | 2019-09-09 09:17 | NUR ---
IM- progress note O/N no events ROS; no f/c/s/N/V/D/HYDE/vision changes/back pain/dizziness/skin rash. v/s; revd PE: tired appearing anicteric ns1s2 Mod BS soft nt nd no e/t a&ox3; fair skin dry n. affect labs/meds revd A/P: 68yoF Elevated troponins PAF CKD3 due to DM2 Morbid obesity BMI 40.4 Hypotension Diastolic CHF PLAN Trend enzymes; Last echo normal LVEF hab1c/lipids check Dig level Heparin/pepcid Stress test. If negative and cleared by cardiology- d/c home. Fer Robins MD, PhD
[2019-09-09] MEDS ORDERED: ONDANSETRON HCL INJ 2MG/ML 2ML 2 MG/ML VIAL IV PRN (09:30)
--- NOTE | 2019-09-09 09:40 | NUR ---
pt co of nausea and heart burn medicated with prn meds. will continue to monitor
--- NOTE | 2019-09-09 10:10 | NUR ---
PT SENT TO [facility]1 FOR REVIEW. DR. MCDONOUGH OK TO DC PT AFTER GATED STRESS TEST IF WNL AND PT WILL F/U W CARDIOLOGY IN 2 WEEK.
--- NOTE | 2019-09-09 10:38 | NUR ---
spoke with dr leong re: telemetry strip of vtach per television script writer, no new orders at this time,
[2019-09-09] MEDS ORDERED: REGADENOSON 0.4 MG/5 ML SYR IV ONE (10:58)
--- NOTE | 2019-09-09 12:00 | NUR ---
down to nuclear med for stress test
[2019-09-09] MEDS: FUROSEMIDE 20 MG TAB PO SCH (13:20)
--- NOTE | 2019-09-09 13:20 | NUR ---
back to , co headache will notify dr patiño for prn med. will continue to monitor
[2019-09-09 14:13] LABS: ANION GAP 14.9 mmol/L (8-16); BLOOD UREA NITROGEN 14 mg/dL (7-26); BUN/CREATININE RATIO 16 (6-25); CALCIUM 8.3 mg/dL (8.4-10.2); CARBON DIOXIDE 30 mmol/L (22-29); CHLORIDE 102 mmol/L (98-107); EST GLOMERULAR FILTRATION RATE > 60 ML/MIN (60-); GLUCOSE 120 mg/dL (74-118); POTASSIUM 3.9 mmol/L (3.5-5.1); SODIUM 143 mmol/L (136-145)
--- NOTE | 2019-09-09 14:55 | Progress Note ---
DATE: Cardiology Progress Note SUBJECTIVE: The patient is feeling better. Denies any typical chest pain. OBJECTIVE: VITAL SIGNS: Temperature is 97.8, heart rate 74, respirations 18, blood pressure is 196/59, and oxygen saturation is 95% on room air. GENERAL: Well appearing, in no apparent distress. CARDIOVASCULAR: Irregularly irregular. LUNGS: Diminished breath sounds at bases. ABDOMEN: Soft, nontender, nondistended. EXTREMITIES: No edema. LABORATORY DATA: Pending cardiovascular medications reviewed. TELEMETRY: Telemetry monitoring revealed likely an episode of atrial fibrillation with rapid ventricular response with aberrancy rather than true ventricular tachycardia. Other times represents atrial fibrillation with slow ventricular response. IMPRESSION: 1. Elevated troponin, likely type 2 myocardial infarction. 2. Paroxysmal atrial fibrillation. 3. Atrial fibrillation with aberrancy. 4. Morbid obesity. 5. Chronic diastolic heart failure. 6. Hypertension, currently with hypotension. RECOMMENDATION: Stress test performed. We will review images once they are available. Echocardiogram in the past showed ejection fraction of 50-55%. Her telemetry monitoring showed an episode of atrial fibrillation with aberrancy. This is difficult to treat given the fact that she has episodes of bradycardia. Continue anticoagulation. Further recommendations to follow once stress test report is available. DO JORDAN Peter/MODL /[id number]
[2019-09-09] MEDS: ACETAMINOPHEN 325 MG TAB PO PRN (16:10)
--- NOTE | 2019-09-09 17:40 | NUR ---
PAGED DR JONES RE: STRESS TEST, AND POSSIBLE DISCHARGE, AWAITING CALL BACK
--- NOTE | 2019-09-09 18:00 | NUR ---
SPOKE WITH DR MCDONOUGH RE: NO RESULT OF STRESS TEST YET, ORDERS TO HOLD DISCHARGE UNTIL CLEARED BY CARDIAC
[2019-09-09] MEDS: ATORVASTATIN 40 MG TAB PO SCH (20:22)
[2019-09-10] VITALS (7 sets, daily range): BP systolic 100–115; BP diastolic 56–71
--- NOTE | 2019-09-10 04:17 | NUR ---
IM- progress note O/N no events ROS; no f/c/s/N/V/D/HYDE/vision changes/back pain/dizziness/skin rash. v/s; revd PE: tired appearing anicteric ns1s2 Mod BS soft nt nd no e/t a&ox3; fair skin dry n. affect labs/meds revd A/P: 68yoF Elevated troponins PAF CKD3 due to DM2 Morbid obesity BMI 40.4 Hypotension Diastolic CHF PLAN Trend enzymes; Last echo normal LVEF hab1c/lipids check Dig level Heparin/pepcid Stress test. If negative and cleared by cardiology- d/c home. 09/10 Hbac/LDL 5.6/42. F/U stress test. monitor; Fer Robins MD, PhD
[2019-09-10] MEDS: LEVOTHYROXINE SODIUM 75 MCG TAB PO SCH (06:05)
--- NOTE | 2019-09-10 08:00 | NUR ---
BEDSIDE SHIFT REPORT RECEIVED PT IN STABLE CONDITION NO DISTRESS NOTED, UPDATED ON POC VOICED UNDERSTANDING, DENIES CHEST PAIN AT THIS TIME, CALL LIGHT IN REACH WILL CONTINUE TO MONITOR
--- NOTE | 2019-09-10 08:30 | NUR ---
Handoff report to oncoming nurse, no s/s of distress patient is stable verbalizing needs.
[2019-09-10] MEDS: FUROSEMIDE 20 MG TAB PO SCH (09:06)
[2019-09-10] MEDS: APIXABAN 5 MG TABLET PO SCH (09:06)
[2019-09-10] MEDS: ASPIRIN 325 MG TAB EC PO SCH (09:06)
[2019-09-10] MEDS: FAMOTIDINE 20 MG TAB PO SCH ×2 (09:06→16:30)
[2019-09-10] MEDS: SERTRALINE HCL 50 MG TAB PO SCH (09:06)
--- NOTE | 2019-09-10 14:50 | Progress Note ---
DATE: Cardiology Progress Note SUBJECTIVE: The patient feeling better. Her dyspnea has improved. OBJECTIVE: VITAL SIGNS: Temperature is 97.3, heart rate 73, respirations 18, blood pressure is 110/71, and oxygen saturation is 95% on room air. GENERAL: Well appearing, in no apparent distress. CARDIOVASCULAR: Irregularly irregular. LUNGS: Diminished breath sounds at bases. ABDOMEN: Soft, obese, and nontender. EXTREMITIES: Trace edema. CARDIOVASCULAR MEDICATIONS: Reviewed. LABORATORY DATA: Reviewed. TELEMETRY: Monitoring revealed atrial fibrillation. IMPRESSION: 1. Elevated troponin, likely type 2 myocardial infarction. 2. Paroxysmal atrial fibrillation. 3. Atrial fibrillation with aberrancy. 4. Morbid obesity. 5. Chronic diastolic heart failure. 6. Hypertension. 7. Abnormal stress test showing anterior and apical nontransmural scar with additional small apical inferolateral perfusion defect. RECOMMENDATIONS: Nuclear stress test performed. Abnormalities as stated above. Her ejection fraction was 50% to 55% on echocardiography. She continues to be in atrial fibrillation with controlled ventricular response. No further episodes of aberrancy. Hold anticoagulation today in preparation for heart catheterization tomorrow. DO JORDAN Peter/MODL /[id number]
[2019-09-10] MEDS ORDERED: BENZONATATE 100 MG CAP PO PRN (18:30)
[2019-09-10] MEDS: ATORVASTATIN 40 MG TAB PO SCH (22:12)
[2019-09-11] VITALS (13 sets, daily range): BP systolic 96–132; BP diastolic 50–85
[2019-09-11] MEDS: LEVOTHYROXINE SODIUM 75 MCG TAB PO SCH (03:45)
--- NOTE | 2019-09-11 06:03 | NUR ---
IM- progress note O/N no events ROS; no f/c/s/N/V/D/HYDE/vision changes/back pain/dizziness/skin rash. v/s; revd PE: tired appearing anicteric ns1s2 Mod BS soft nt nd no e/t a&ox3; fair skin dry n. affect labs/meds revd A/P: 68yoF Elevated troponins PAF CKD3 due to DM2 Morbid obesity BMI 40.4 Hypotension Diastolic CHF PLAN Trend enzymes; Last echo normal LVEF hab1c/lipids check Dig level Heparin/pepcid Stress test. If negative and cleared by cardiology- d/c home. 09/10 Hbac/LDL 5.6/42. F/U stress test. monitor; 09/11 abnormal Stress test- [facility] pending; Fer Robins MD, PhD
--- NOTE | 2019-09-11 06:32 | NUR ---
SPOKE TO DR. MCDONOUGH AT THIS TIME. ORDERED TO CHANGE TESSALON PERLES FROM PRN TO SCHEDULED AND ROBITUSSIN 10ML Q8H SCHEDULED.
--- NOTE | 2019-09-11 07:00 | NUR ---
RECEIVED PATIENT RESTING IN BED NO S/S OF DISTRESS. BED LOW, WHEELS LOCKED, SIDE RAILS X2. CALL LIGHT IN REACH WILL CONTINUE TO MONITOR PATIENT.
[2019-09-11] MEDS: BENZONATATE 100 MG CAP PO SCH ×4 (07:15→21:33)
[2019-09-11] MEDS: FAMOTIDINE 20 MG TAB PO SCH ×3 (07:30→18:02)
[2019-09-11] MEDS: GUAIFENESIN/DEXTROMETHORPHAN LIQD 5 ML UDC PO SCH ×4 (07:30→21:33)
[2019-09-11] MEDS: ASPIRIN 325 MG TAB EC PO SCH ×2 (07:37→08:47)
[2019-09-11] MEDS: SERTRALINE HCL 50 MG TAB PO SCH ×2 (07:38→08:47)
[2019-09-11] MEDS: FUROSEMIDE 20 MG TAB PO SCH ×2 (07:38→08:47)
[2019-09-11] MEDS: ACETAMINOPHEN 325 MG TAB PO PRN (08:49)
--- NOTE | 2019-09-11 10:39 | Progress Note ---
DATE: 09/11/2019 Cardiology Consult Progress Note SUBJECTIVE: Ms. Cage is sleeping comfortably. No complaints. PHYSICAL EXAMINATION: VITAL SIGNS: Afebrile, heart rate 80, blood pressure 115/65, O2 saturation is 96%. CARDIOVASCULAR: Regular rhythm. No murmurs or gallops. LUNGS: Clear to auscultation bilaterally. TELEMETRY: Shows atrial fibrillation. ASSESSMENT: Coronary artery disease with abnormal stress test. RECOMMENDATIONS: Cardiac catheterization will be performed this afternoon. Risks, benefits, and alternatives to the procedure were discussed with the patient. She is agreeable for the same. MD APRIL Cruz/MODShelbie /[id number]
--- NOTE | 2019-09-11 11:05 | NUR ---
ASSESSMENT: No concerns expressed Pt hopeful to be home for Thanksgiving. Pt's son at bedside. Intervention: Provided unhurried empathic listening. Provided information on how to reach supervisor mending, if needed. Outcome: Pt expressed appreciation for visit. GUS TORIBIO [employer] [facility] O: [phone] Pager: [phone] ([phone] number calling from)
--- NOTE | 2019-09-11 14:10 | NUR ---
PATIENT LEFT TO GIANT TIRE REPAIRER AT THIS TIME VIA BED IN STABLE CONDITION.
[2019-09-11] MEDS ORDERED: FENTANYL CITRATE/PF 100MCG/2 ML INJ ONE (14:11)
[2019-09-11] MEDS ORDERED: MIDAZOLAM HCL 2 MG/2 ML VIAL ONE ×2 (14:11→14:58)
[2019-09-11] MEDS ORDERED: HEPARIN SOD (PORCINE) 1000 UNIT/ML 30ML ONE (14:11)
[2019-09-11] MEDS ORDERED: HEPARIN SOD/SOD CHLORIDE 2,000 ML ONE (14:12)
[2019-09-11] MEDS ORDERED: LIDOCAINE HCL 2% LOCAL 20 ML VIAL ONE (14:12)
[2019-09-11] MEDS ORDERED: SODIUM CHLORIDE 0.9% 1000ML 1,000 ML ONE (14:12)
[2019-09-11] MEDS ORDERED: IOPAMIDOL 370 MG/ML 200 ML INFUS..BTL INJ ONE (14:12)
[2019-09-11] MEDS ORDERED: NITROGLYCERIN/D5W 200 MCG/ML 250 ML ONE (14:13)
[2019-09-11] MEDS ORDERED: VERAPAMIL HCL 2.5 MG/ML 2 ML VIAL ONE (14:13)
--- NOTE | 2019-09-11 17:15 | NUR ---
TR band successfully removed after manual pressure x 10 minutes. no gross issues at this time
--- NOTE | 2019-09-11 17:30 | NUR ---
Pt meets DC criteria from department. report called to SURESH RN. right radial assessed for s/s of complication and presence of hematoma. + neurovascular function of right hand. Right wrist splint/reminder provided on patient request. informed receiving RN and patient that wrist reminder to be removed in AM. Overall skin warm, dry, no discolor, and pulses present. IV patent to right AC and left forearm. VS WNL. Pt denies pain, sob, or need at this time. Family at bedside. Transported on monitor to 115 - cgf
--- NOTE | 2019-09-11 19:00 | NUR ---
RECEIVED PATIENT IN BEDSIDE REPORT. PATIENT REPORTS NO PAIN, NO S&S OF DISTRESS NOTED. REMINDED PATIENT OF IMPORTANCE OF WRIST IMMOBILIZER TONIGHT TO ENSURE MOVEMENT DOES NOT OPEN HEART CATH SITE, PATIENT VERBALIZED UNDERSTANDING. BED LOCKED IN LOWEST POSITION, SIDE RAILS UPX2, CALL LIGHT IN REACH.
[2019-09-11] MEDS: ATORVASTATIN 40 MG TAB PO SCH (21:33)
--- NOTE | 2019-09-11 21:48 | Operative Report ---
DATE OF PROCEDURE: 09/11/2019 SURGEON: Figueroa Powers MD INDICATIONS FOR PROCEDURE: Elevated troponin. PREPROCEDURE ASSESSMENT: Risks, benefits, and alternatives of treatment were explained to the patient prior to the procedure. The patient was deemed to be an appropriate candidate for moderate sedation. Informed consent was obtained and documented in the record. MEDICATIONS: Please see nursing notes for medications administered throughout the procedure. PROCEDURES PERFORMED: 1. Coronary angiography. 2. Left heart catheterization, right radial approach. PROCEDURE IN DETAIL: The patient was brought to the cardiac catheterization laboratory in a fasting state. Right wrist was prepped and draped in sterile fashion. A 6-Canadian Slender sheath was inserted in right radial artery using modified Seldinger technique. Coronary angiography was performed. A 5-Canadian Doris radial catheter to engage RCA and 6-Canadian XB3 3.0 Krakow catheter to engage the left main. Left heart catheterization was performed using Doris radial catheter. Multiple orthogonal views were taken from each coronary artery. All catheters were removed over a wire. The patient tolerated the procedure well. There were no immediate complications. SIGNIFICANT FINDINGS: 1. Right dominant coronary system. No significant CAD. 2. LVEDP is 21 mmHg. 3. No gradient across the aortic valve. GRAFTS AND IMPLANTS: None. SPECIMENS REMOVED: None. ESTIMATED BLOOD LOSS: 10 mL. COMPLICATIONS: None. FINAL RECOMMENDATIONS: 1. Continue optimal medical therapy and risk factor control. 2. Follow up in clinic 2 weeks post discharge. Figueroa Powers MD KVP/MODL /[id number]
[2019-09-12] VITALS: BP 102/51
[2019-09-12 04:00] VITALS: BP 104/60
--- NOTE | 2019-09-12 05:57 | NUR ---
D/C summary Principal Dx: No CAD on LHC Elevated troponins PAF Hypotension Secondary Dx CKD3 due to DM2 Morbid obesity BMI 40.4 Diastolic CHF PLAN Trend enzymes; Last echo normal LVEF hab1c/lipids check Dig level Heparin/pepcid Stress test. If negative and cleared by cardiology- d/c home. 09/10 Hbac/LDL 5.6/42. F/U stress test. monitor; 09/11 abnormal Stress test- [facility] pending; 09/12 check labs; f/u [facility] No CAD D/C home f/u pcp 1 week and cardiology 2 weeks stable d/c>34mins Fer Robins MD, PhD
[2019-09-12] MEDS: BENZONATATE 100 MG CAP PO SCH ×2 (06:00→13:52)
[2019-09-12] MEDS: GUAIFENESIN/DEXTROMETHORPHAN LIQD 5 ML UDC PO SCH ×2 (06:00→13:52)
[2019-09-12] MEDS: LEVOTHYROXINE SODIUM 75 MCG TAB PO SCH (06:48)
--- NOTE | 2019-09-12 07:00 | NUR ---
RECEIVED PATIENT AWAKE RESTING IN BED NO S/S OF DISTRESS. BED LOW, WHEELS LOCKED, SIDE RAILS X2. CALL LIGHT IN REACH WILL CONTINUE TO MONITOR PATIENT.
[2019-09-12 07:18] LABS: BASOPHILS % 0.5 % (0.0-1.0); EOSINOPHILS # (AUTO) 0.2 (0.0-0.4); EOSINOPHILS % 3.5 % (0.0-6.0); HEMATOCRIT 35.5 % (34.2-44.1); HEMOGLOBIN 11.4 g/dL (12.0-16.0); LYMPHOCYTES # (AUTO) 1.4 (1.0-3.2); LYMPHOCYTES % 22.5 % (18.0-39.1); MEAN CORPUSCULAR HEMOGLOBIN 30.7 pg (28-32); MEAN CORPUSCULAR HGB CONC 32.1 g/dL (31-35); MEAN CORPUSCULAR VOLUME 95.7 fL (81-99); MONOCYTES # (AUTO) 0.6 (0.2-0.8); MONOCYTES % 10.1 % (4.4-11.3); NEUTROPHILS % 62.8 % (38.7-80.0); PLATELET COUNT 207 x10e3/uL (140-360); RED BLOOD COUNT 3.71 x10e6/uL (3.6-5.1); RED CELL DISTRIBUTION WIDTH 15.5 % (11.7-14.4)
[2019-09-12 07:37] LABS: ANION GAP 13.9 mmol/L (8-16); BLOOD UREA NITROGEN 10 mg/dL (7-26); BUN/CREATININE RATIO 13 (6-25); CALCIUM 8.7 mg/dL (8.4-10.2); CARBON DIOXIDE 28 mmol/L (22-29); CHLORIDE 101 mmol/L (98-107); CREATININE, SERUM 0.76 mg/dL (0.57-1.11); EST GLOMERULAR FILTRATION RATE > 60 ML/MIN (60-); GLUCOSE 99 mg/dL (74-118); SODIUM 140 mmol/L (136-145)
[2019-09-12 07:40] LABS: POTASSIUM 2.9 mmol/L (3.5-5.1)
--- NOTE | 2019-09-12 08:05 | NUR ---
SPOKE WITH DR. MCDONOUGH REGARDING POTASSIUM 2.9 NEW ORDER FOR REPEAT POTASSIUM LAB
[2019-09-12 08:34] VITALS: BP 110/64
[2019-09-12 08:52] VITALS: BP 110/64
[2019-09-12] MEDS: ASPIRIN 325 MG TAB EC PO SCH (09:00)
[2019-09-12] MEDS: FAMOTIDINE 20 MG TAB PO SCH (09:00)
[2019-09-12] MEDS: FUROSEMIDE 20 MG TAB PO SCH (09:00)
[2019-09-12] MEDS: APIXABAN 5 MG TABLET PO SCH (09:00)
[2019-09-12] MEDS: SERTRALINE HCL 50 MG TAB PO SCH (09:00)
--- NOTE | 2019-09-12 09:57 | NUR ---
SPOKE WITH DR. MCDONOUGH REGARDING REPEAT POTASSIUM 2.8 NEW ORDERS FOR 40 MEQ PO AND 40 MEQ IV. RECHECK POTASSIUM AT 4 PM NEW ORDERS IMPLEMENTED
[2019-09-12] MEDS ORDERED: SODIUM CHLORIDE 0.9% 1000ML 1,000 ML ONE (10:17)
[2019-09-12] MEDS: POTASSIUM CHLORIDE 20MEQ/100ML 200 ML IV ONE ×2 (10:29→10:47)
[2019-09-12] MEDS ORDERED: POTASSIUM CHLORIDE 20 MEQ TAB CR PO ONE ×3 (10:30→14:10)
--- NOTE | 2019-09-12 10:48 | NUR ---
PATIENTS IV STATED LEAKING WHEN BEGINNING POTASSIUM IV. SPOKE WITH DR. MCDONOUGH REGARDING PATIENT NOT WANTING ANOTHER IV IF POSSIBLY GOING HOME THIS AFTERNOON. NEW ORDER FOR POTASSIUM 40 MEQ PO. NEW ORDERS IMPLEMENTED.
[2019-09-12 12:23] VITALS: BP 133/85
--- NOTE | 2019-09-12 13:30 | NUR ---
SPOKE WITH DR. MCDONOUGH ABOUT POTASSIUM LEVEL 3.4 NEW ORDER FOR 60 MEQ PO POTASSIUM AND THEN PATIENT CAN BE DISCHARGED NEW ORDERS IMPLEMENTED
--- NOTE | 2019-09-12 14:00 | NUR ---
IMM EXPLAINED TO PATIENT, PATIENT SIGNED, COPY TO PATIENT, ORIGINAL TO CHART
--- NOTE | 2019-09-12 14:25 | NUR ---
PATIENT CLEARED BY DR. LEWIS FOR DISCHARGE.
--- NOTE | 2019-09-12 15:10 | NUR ---
REMOVED PATIENTS IV. CATHETER TIP INTACT AND PRESSURE DRESSING APPLIED.
--- NOTE | 2019-09-12 15:56 | NUR ---
PATIENT DISCHARGED FROM FACILITY. PATIENT GATHERED ALL PERSONAL BELONGINGS, DISCHARGE INSTRUCTIONS, AND FOLLOW UP INFORMATION. PATIENT LEFT UNIT IN WHEELCHAIR AND WENT HOME VIA PRIVATE AUTO. NO SIGNS OF DISTRESS WHEN LEAVING FACILITY.
== END 2019-09-12 15:56 | disposition home or self-care (01) | DRG 287 ==
LOC: ER 15:24 → ERHOLD 22:03 → MED/SURG 09-08 01:20 → OBSVTOIN 09-10 11:42 → INTOOBSV 09-10 11:42
PROVIDERS: ADMIT Internal Medicine; ATTEND Internal Medicine
PROC: 4A023N7 Measurement of Cardiac Sampling and Pressure, Left Heart, Percutaneous Approach (ICD-10-PCS; principal; 2019-09-11)
PROC: B2111ZZ Fluoroscopy of Multiple Coronary Arteries using Low Osmolar Contrast (ICD-10-PCS; 2019-09-11)
PROC: B2151ZZ Fluoroscopy of Left Heart using Low Osmolar Contrast (ICD-10-PCS; 2019-09-11)
DX: R94.39 Abnormal result of other cardiovascular function study (principal); I50.32 Chronic diastolic (congestive) heart failure; Z68.41 Body mass index [BMI] 40.0-44.9, adult; I13.0 Hypertensive heart and chronic kidney disease with heart failure and stage 1 through stage 4 chronic kidney disease, or unspecified chronic kidney disease; I48.0 Paroxysmal atrial fibrillation; E66.9 Obesity, unspecified; E66.01 Morbid (severe) obesity due to excess calories; E11.22 Type 2 diabetes mellitus with diabetic chronic kidney disease; N18.3 Chronic kidney disease, stage 3 (moderate); Z79.84 Long term (current) use of oral hypoglycemic drugs
CPT/HCPCS: 36415; 71046; 71260; 78452; 80048; 80053; 80061; 80162; 81001; 82550; 82553; 83036; 83605; 84132; 84484; 85025; 85610; 85730; 87040; 87086; 93005; 93017; 93458; 99152; 99284; A9502; C1769; C1887; G0378; J1644; J2001; J2250; J2405; J3010; J3480; J7030; J7040; J7050; Q9967

== ENCOUNTER 2019-11-16 14:32 | Observation (INO) | payer MEDICARE ==
[~2019-11-16] VITALS: Ht 152.4 cm; Wt 91.0 kg
[~2019-11-16 14:32] MED LIST changes: +DIGOXIN250 MCG PO; +ELIQUIS5 MG PO; +ENTRESTO 24 MG1 EACH PO; +METOPROLOL SUCC25 MG PO
[2019-11-16] MEDS ORDERED: FUROSEMIDE INJ 10 MG/ML 2 ML VIAL IV ONE (14:45)
[2019-11-16 14:59] LABS: BASOPHILS # (AUTO) 0.1 (0.0-0.1); BASOPHILS % 0.8 % (0.0-1.0); EOSINOPHILS # (AUTO) 0.2 (0.0-0.4); EOSINOPHILS % 2.5 % (0.0-6.0); HEMATOCRIT 40.4 % (34.2-44.1); HEMOGLOBIN 12.4 g/dL (12.0-16.0); LYMPHOCYTES # (AUTO) 1.3 (1.0-3.2); LYMPHOCYTES % 20.9 % (18.0-39.1); MEAN CORPUSCULAR HEMOGLOBIN 29.6 pg (28-32); MEAN CORPUSCULAR HGB CONC 30.7 g/dL (31-35); MEAN CORPUSCULAR VOLUME 96.4 fL (81-99); MONOCYTES # (AUTO) 0.6 (0.2-0.8); MONOCYTES % 9.7 % (4.4-11.3); NEUTROPHILS # (AUTO) 4.2 (2.1-6.9); NEUTROPHILS % 65.2 % (38.7-80.0); PLATELET COUNT 174 x10e3/uL (140-360); RED BLOOD COUNT 4.19 x10e6/uL (3.6-5.1); RED CELL DISTRIBUTION WIDTH 15.2 % (11.7-14.4)
[2019-11-16 15:10] LABS: PARTIAL THROMBOPLASTIN TIME 18.8 seconds (23.8-35.5)
[2019-11-16 15:14] LABS: INR 1.27; PROTHROMBIN TIME 16.5 seconds (11.9-14.5)
[2019-11-16 15:23] LABS: ALANINE AMINOTRANSFERASE 12 IU/L (0-55); ALBUMIN 3.3 g/dL (3.5-5.0); ALBUMIN/GLOBULIN RATIO 0.9 (0.8-2.0); ALKALINE PHOSPHATASE 88 IU/L (40-150); ANION GAP 19.7 mmol/L (8-16); BLOOD UREA NITROGEN 10 mg/dL (7-26); BUN/CREATININE RATIO 12 (6-25); CALCIUM 9.1 mg/dL (8.4-10.2); CARBON DIOXIDE 20 mmol/L (22-29); CHLORIDE 104 mmol/L (98-107); CREATINE KINASE 86 IU/L (29-168); CREATININE, SERUM 0.82 mg/dL (0.57-1.11); EST GLOMERULAR FILTRATION RATE > 60 ML/MIN (60-); GLUCOSE 93 mg/dL (74-118); POTASSIUM 3.7 mmol/L (3.5-5.1); SODIUM 140 mmol/L (136-145)
--- NOTE | 2019-11-16 16:37 | Diagnostic Imaging Report ---
EXAMINATION: CHEST 2 VIEWS INDICATION: Shortness of breath COMPARISON: Chest radiograph 09/07/2019 FINDINGS: LINES/TUBES:None LUNGS:The lungs are moderately inflated. There is perihilar fullness and indistinctness of the pulmonary vasculature. PLEURA:No pleural effusion or pneumothorax. MEDIASTINUM:Cardiomediastinal silhouette is stably enlarged. BONES/SOFT TISSUES:No acute osseous injury. ABDOMEN:No free air under the diaphragm. IMPRESSION: Cardiomegaly and pulmonary edema. Signed by: Oxana Guaman MD on 11/16/2019 4:34 PM
[2019-11-16] MEDS ORDERED: ONDANSETRON HCL4 MG PO (16:55)
[2019-11-16] MEDS ORDERED: SUCRALFATE1 GM PO (16:55)
[2019-11-16] MEDS ORDERED: PANTOPRAZOLE SO40 MG PO (16:55)
[2019-11-16 17:46] LABS: BILIRUBIN,URINE NEGATIVE (NEGATIVE); CLARITY,URINE CLEAR (CLEAR); COLOR,URINE YELLOW (YELLOW); KETONES,URINE NEGATIVE (NEGATIVE); LEUKOCYTE ESTERASE ,URINE NEGATIVE (NEGATIVE); NITRITE,URINE NEGATIVE (NEGATIVE); PROTEIN,URINE DIPSTICK NEGATIVE (NEGATIVE); URINE UROBILINOGEN 0.2 mg/dL (0.2 - 1)
[2019-11-16 17:56] LABS: AMORPHOUS SEDIMENT,URINE MODERATE (FEW); BACTERIA,URINE FEW /HPF; EPITHELIAL CELLS,URINE MANY /LPF
[2019-11-16] MEDS ORDERED: SODIUM CHLORIDE FLUSH 10 ML SYR INJ PRN (18:45)
[2019-11-17] MEDS: IBUPROFEN 400 MG TAB PO PRN (00:44)
[2019-11-17] MEDS ORDERED: IBUPROFEN 200 MG TAB ONE (00:49)
[2019-11-17 05:36] LABS: BASOPHILS % 0.5 % (0.0-1.0); EOSINOPHILS # (AUTO) 0.2 (0.0-0.4); EOSINOPHILS % 2.6 % (0.0-6.0); HEMATOCRIT 38.4 % (34.2-44.1); HEMOGLOBIN 11.9 g/dL (12.0-16.0); LYMPHOCYTES # (AUTO) 1.5 (1.0-3.2); LYMPHOCYTES % 20.3 % (18.0-39.1); MEAN CORPUSCULAR HEMOGLOBIN 29.8 pg (28-32); MEAN CORPUSCULAR VOLUME 96.2 fL (81-99); MONOCYTES # (AUTO) 0.7 (0.2-0.8); NEUTROPHILS # (AUTO) 4.8 (2.1-6.9); NEUTROPHILS % 66.1 % (38.7-80.0); PLATELET COUNT 230 x10e3/uL (140-360); RED BLOOD COUNT 3.99 x10e6/uL (3.6-5.1); RED CELL DISTRIBUTION WIDTH 15.1 % (11.7-14.4)
[2019-11-17 05:59] LABS: ALANINE AMINOTRANSFERASE 10 IU/L (0-55); ALBUMIN/GLOBULIN RATIO 1.1 (0.8-2.0); ALKALINE PHOSPHATASE 84 IU/L (40-150); ANION GAP 16.5 mmol/L (8-16); BLOOD UREA NITROGEN 10 mg/dL (7-26); BUN/CREATININE RATIO 14 (6-25); CALCIUM 8.9 mg/dL (8.4-10.2); CARBON DIOXIDE 26 mmol/L (22-29); CHLORIDE 107 mmol/L (98-107); CREATINE KINASE 70 IU/L (29-168); CREATININE, SERUM 0.71 mg/dL (0.57-1.11); EST GLOMERULAR FILTRATION RATE > 60 ML/MIN (60-); GLUCOSE 83 mg/dL (74-118); POTASSIUM 3.5 mmol/L (3.5-5.1); SODIUM 146 mmol/L (136-145)
[2019-11-17] MEDS: FUROSEMIDE INJ 10 MG/ML 4 ML VIAL IV SCH ×2 (06:29→17:16)
--- NOTE | 2019-11-17 07:06 | NUR ---
H&P cc: fluid overload HPI: 68yoF, PCP , developed fluid overload and sob. Found to have pulmonary edema. PMH: Severe obesity, Disastolic CHF, DM2, peripheral edema, KALEB, PAF, CKD3? PSHx: stomach, c-sec, hysterectomy Allergies; see MAR FH/SH; single; no cigs meds; see MAR ROS; no f/c/s/N/V/D/HYDE/vision changes/back pain/dizziness/skin rash. v/s; revd PE: tired appearing anicteric ns1s2 reduced breath sounds soft nt nd no e/t a&ox3; fair skin dry n. affect labs/meds revd A/P: 68yoF Fluid overload- diurese Pulmonary edema- diurese with IV lasix AECHF- diastolic- diurese Severe obesity- hba1c/lipid; 1/2 portion sizes BMI 40.4- as above PAF- HR controlled; cont metoprolol and dig; and apixaban CKD3 due to DM2- hba1c/lipids; ssi; renal at baseline. Prop: ppi on AC Fer Robins MD, PhD
[2019-11-17] MEDS ORDERED: ALBUTEROL/IPRATROPIUM 3 ML NEB NEB PRN (08:00)
[2019-11-17] MEDS ORDERED: ALBUTEROL/IPRATROPIUM 3 ML NEB NEB ONE (08:00)
--- NOTE | 2019-11-17 08:04 | NUR ---
PT URINE SOAKED, PT STATES PURE WIK CONTINUOUSLY LEAKING AND NOT WORKING AND SHE IS UNCOMFORTABLE AND COLD. CALLED DR MCDONOUGH AND INFORMED OF SITUATION. ORDERS FOR MORILLO. MORILLO PLACED TO GRAVITY AND DRAINING WELL. PT CLEANED AND ENTIRE BED CHANGED AND NEW WARM BLANKETS. PT MODIFIED FOWLERS FOR COMFORT, FOOD TRAY SET UP FOR PT. PT SOB AND WHEEZING. MD ORDER NEBS AND AM CXR. VSS. PT STATES FEELING BETTER. WILL CONTINUE TO MONITOR. ECHO NOTIFIED PT READY FOR TESTING.
[2019-11-17] MEDS: SERTRALINE HCL 50 MG TAB PO SCH (09:37)
[2019-11-17] MEDS: POTASSIUM CHLORIDE 10MEQ EA PO SCH (09:37)
[2019-11-17] MEDS: VALSARTAN/SACUBITRIL 24MG/26MG 1 EA TAB PO SCH (09:37)
[2019-11-17] MEDS: PANTOPRAZOLE SOD 40 MG TABEC PO SCH (09:37)
[2019-11-17] MEDS: METOPROLOL SUCCINATE 25 MG TAB XL PO SCH (09:37)
[2019-11-17] MEDS: APIXABAN 5 MG TABLET PO SCH (09:37)
[2019-11-17] MEDS: LEVOTHYROXINE SODIUM 75 MCG TAB PO SCH (09:37)
[2019-11-17] MEDS: DIGOXIN 0.25 MG TAB PO SCH (09:44)
--- NOTE | 2019-11-17 09:46 | NUR ---
PT SITTING IN CHAIR BY BED WITH CALL [place]HAL IN REACH, O2 ON, MONITOR ON, WATCHING TV, PT STATES SITTING UP MAKES HER FEEL BETTER. AAOX4. STABLE AT THIS TIME.
--- NOTE | 2019-11-17 09:53 | NUR ---
obs review done, patient in er hold. strict i and o. christianson. iv daphnieix
--- NOTE | 2019-11-17 09:55 | Diagnostic Imaging Report ---
Chest, 1 view, 11/17/2019. History: Shortness of breath. Comparison: 11/16/2019. Findings: The cardiomediastinal silhouette and pulmonary vasculature are prominent with hazy bilateral perihilar opacities. There is no evidence of pleural effusion. There are no acute osseous or soft tissue abnormalities. Impression: Cardiomegaly and mild pulmonary edema without significant change. Signed by: Gary Vega on 11/17/2019 9:52 AM
[2019-11-17] MEDS: ALBUTEROL/IPRATROPIUM 3 ML NEB NEB SCH ×4 (11:00→23:18)
[2019-11-17] MEDS: SUCRALFATE 1 GM TAB PO SCH ×3 (12:00→23:10)
[2019-11-17 13:00] VITALS: BP 89/48
--- NOTE | 2019-11-17 13:00 | NUR ---
The pt. arrived to the room from ER with indwelling bladder cath for urinary retention. She has a short history of shortness of breath and urinary retention. The routine adm procedures were performed and the pt. is sitting in the chair with o2 @3l n /c. The call system is within reach.
[2019-11-17 16:00] VITALS: BP 106/61
--- NOTE | 2019-11-17 19:05 | NUR ---
RECEIVED PATIENT IN REPORT.AAOX3.MORILLO IS DRAINING WELL.NASAL CANNULA 3 LITRE ON GODWIN .BED ALARM ON.BED LOCKED AND IN LOWEST POSITION.PHONE AND CALL LIGHT WITHIN REACH.INSTRUCTED TO CALL FOR ASSISTANCE NEEDED.
[2019-11-17 20:00] VITALS: BP 101/58
[2019-11-17 20:50] VITALS: BP 101/58
[2019-11-17] MEDS: Lovastatin 10 MG PO SCH (21:00)
--- NOTE | 2019-11-17 23:17 | NUR ---
MORILLO CARE GIVEN.PATIENT TOLERATED WELL.COMFORTABLY RESTING IN THE BED.NO PAIN VOICED.GETTING BREATHING TREATMENT.STABLE CONDITION.
[2019-11-18] VITALS (8 sets, daily range): BP systolic 98–115; BP diastolic 52–68
[2019-11-18] MEDS: IBUPROFEN 400 MG TAB PO PRN (00:08)
--- NOTE | 2019-11-18 02:11 | NUR ---
IM- progress note O/N no events ROS; no f/c/s/N/V/D/HYDE/vision changes/back pain/dizziness/skin rash. v/s; revd PE: tired appearing anicteric ns1s2 reduced breath sounds soft nt nd no e/t a&ox3; fair skin dry n. affect labs/meds revd A/P: 68yoF Fluid overload- diurese Pulmonary edema- diurese with IV lasix AECHF- diastolic- diurese Severe obesity- hba1c/lipid; 10/19 portion sizes BMI 40.4- as above PAF- HR controlled; cont metoprolol and dig; and apixaban CKD3 due to DM2- hba1c/lipids; ssi; renal at baseline. Prop: ppi on AC 11/18 f/u echo; cont lasix; check I/O Fer Robins MD, PhD
[2019-11-18] MEDS: ALBUTEROL/IPRATROPIUM 3 ML NEB NEB SCH ×6 (03:18→23:20)
[2019-11-18] MEDS: SUCRALFATE 1 GM TAB PO SCH ×3 (06:13→17:27)
--- NOTE | 2019-11-18 06:58 | NUR ---
BED SIDE SHIFT REPORT GIVEN TO ONCOMING RN.STABLE CONDITION.
--- NOTE | 2019-11-18 07:20 | NUR ---
The pt. is awake, alert and receiving nebs at this time.
--- NOTE | 2019-11-18 08:05 | NUR ---
36 HR OBS SENT TO [facility]
[2019-11-18] MEDS: FUROSEMIDE INJ 10 MG/ML 4 ML VIAL IV SCH ×2 (08:58→17:27)
[2019-11-18] MEDS: APIXABAN 5 MG TABLET PO SCH (08:58)
[2019-11-18] MEDS: PANTOPRAZOLE SOD 40 MG TABEC PO SCH (08:59)
[2019-11-18] MEDS: LEVOTHYROXINE SODIUM 75 MCG TAB PO SCH (08:59)
[2019-11-18] MEDS: SERTRALINE HCL 50 MG TAB PO SCH (08:59)
[2019-11-18] MEDS: POTASSIUM CHLORIDE 10MEQ EA PO SCH (08:59)
[2019-11-18] MEDS: VALSARTAN/SACUBITRIL 24MG/26MG 1 EA TAB PO SCH (08:59)
[2019-11-18] MEDS: DIGOXIN 0.25 MG TAB PO SCH (08:59)
[2019-11-18] MEDS: METOPROLOL SUCCINATE 25 MG TAB XL PO SCH (09:00)
--- NOTE | 2019-11-18 11:30 | NUR ---
Cath(christianson) removed and the pt. is due to void in 6 hours.
--- NOTE | 2019-11-18 17:50 | NUR ---
Patient will benefit from outpatient cardio-pulmonary rehab upon D/C. Addendum: 11/18/19 at 2018 by Shayne Tena PT Amended: Links added.
--- NOTE | 2019-11-18 18:11 | NUR ---
Nutrition Screen Note RD Recommendation for Physician:Continue diet as ordered Plan of Care: RD following, monitoring for tolerance and adequacy Nutrition reason for involvement: CHF Primary Diagnose(s): CHF PMH: gastric resection, T2DM Ht:60 in Wt: 207 lb BMI:40.4 kg/m2 IBW: [address] Assessment: Initial encounter with patient. Diet HX: pt denies any N,V,D, nor has any difficulty chewing or swallowing. Pt follows a low sodium diet at home. Pt has no known food allergies. Pt is eating well. PO intake should be adequate. Current Diet: Regular diet Malnutrition Evaluation (11/18/2019) The patient does not meet criteria for a specified degree of malnutrition at this time. Will re-evaluate at follow-up as appropriate. Diet Education Needs Assessment: Diet education not indicated at this time, pt is familiar with diet Nutrition Care Level: cynthia Holly RD, LD, [facility]
--- NOTE | 2019-11-18 19:00 | NUR ---
RECEIVED THE PATIENT IN REPORT.SITTING IN THE CHAIR.STABLE CONDITION.VOIDED IN THE RESTROOM.
[2019-11-18] MEDS: Lovastatin 10 MG PO SCH (21:00)
--- NOTE | 2019-11-18 22:20 | NUR ---
Assessment done.no resp distress.ambulates to rest room and voided.bed locked and in lowest position.phone and call light within reach.instructed to call for assistance as needed.
[2019-11-19] VITALS (8 sets, daily range): BP systolic 103–120; BP diastolic 55–71
[2019-11-19] MEDS: SUCRALFATE 1 GM TAB PO SCH ×6 (00:03→23:18)
--- NOTE | 2019-11-19 02:39 | NUR ---
V TACH NOTED FOR A SECOND.BUT PATIENT IS DOING WELL.SLEEPING .V/S STABLE.NO CHEST PAIN VOICED.KEEP MONITOR THE PATIENT.
[2019-11-19] MEDS: ALBUTEROL/IPRATROPIUM 3 ML NEB NEB SCH ×6 (03:11→23:08)
--- NOTE | 2019-11-19 07:00 | NUR ---
Bed side shift report given to oncoming RN.stable condition.
--- NOTE | 2019-11-19 07:39 | NUR ---
informed Dr. Robins of pt's run of V-tach (10 beats) as reported from Telemetry just now. will continue to monitor.
--- NOTE | 2019-11-19 07:45 | NUR ---
IM- progress note O/N no events ROS; no f/c/s/N/V/D/HYDE/vision changes/back pain/dizziness/skin rash. v/s; revd PE: tired appearing anicteric ns1s2 reduced breath sounds soft nt nd no e/t a&ox3; fair skin dry n. affect labs/meds revd A/P: 68yoF Fluid overload- diurese Pulmonary edema- diurese with IV lasix AECHF- diastolic- diurese Severe obesity- hba1c/lipid; 1/2 portion sizes BMI 40.4- as above PAF- HR controlled; cont metoprolol and dig; and apixaban CKD3 due to DM2- hba1c/lipids; ssi; renal at baseline. Prop: ppi on AC 11/18 f/u echo; cont lasix; check I/O 2/2 NSVT- cont BB; check lytes; f/u echo; I/O 360/1350; Systolic and Diastolic CHF- LVEF 30%; Pt states had stress test last fall? LHC needed at some point; cardio eval. Fer Robins MD, PhD
[2019-11-19] MEDS ORDERED: ONDANSETRON HCL INJ 2MG/ML 2ML 2 MG/ML VIAL IV PRN (08:00)
[2019-11-19] MEDS: PANTOPRAZOLE 40 MG 10ML VIAL IV SCH (08:11)
[2019-11-19 08:24] LABS: ANION GAP 15.7 mmol/L (8-16); BLOOD UREA NITROGEN 9 mg/dL (7-26); BUN/CREATININE RATIO 12 (6-25); CALCIUM 9.4 mg/dL (8.4-10.2); CARBON DIOXIDE 32 mmol/L (22-29); CHLORIDE 98 mmol/L (98-107); CREATININE, SERUM 0.74 mg/dL (0.57-1.11); EST GLOMERULAR FILTRATION RATE > 60 ML/MIN (60-); GLUCOSE 103 mg/dL (74-118); SODIUM 143 mmol/L (136-145)
[2019-11-19 08:37] LABS: POTASSIUM 2.7 mmol/L (3.5-5.1)
[2019-11-19 08:52] LABS: MAGNESIUM 1.6 MG/DL (1.3-2.1); PHOSPHORUS 2.7 MG/DL (2.3-4.7)
[2019-11-19] MEDS: FUROSEMIDE INJ 10 MG/ML 4 ML VIAL IV SCH ×2 (10:24→17:49)
--- NOTE | 2019-11-19 10:24 | NUR ---
PT STILL C/O NAUSEA; GIVEN IV ZOFRAN. PT REFUSING ORAL MEDS AT THIS TIME. WILL CONTINUE TO REASSESS.
[2019-11-19] MEDS: APIXABAN 5 MG TABLET PO SCH (10:58)
[2019-11-19] MEDS: POTASSIUM CHLORIDE 10MEQ EA PO SCH (10:59)
[2019-11-19] MEDS: VALSARTAN/SACUBITRIL 24MG/26MG 1 EA TAB PO SCH (10:59)
[2019-11-19] MEDS: DIGOXIN 0.25 MG TAB PO SCH (11:00)
[2019-11-19] MEDS: LEVOTHYROXINE SODIUM 75 MCG TAB PO SCH (11:01)
[2019-11-19] MEDS: METOPROLOL SUCCINATE 25 MG TAB XL PO SCH (11:02)
[2019-11-19] MEDS: SERTRALINE HCL 50 MG TAB PO SCH (11:02)
--- NOTE | 2019-11-19 12:31 | NUR ---
Spoke to Dr. Robins, Cardio saw patient, nothing to do for transient aflutter overnight, patient ok to dc from their standpoint and see EP. Dr. Robins states continue IV lasix overnight and DC in AM.
[2019-11-19] MEDS ORDERED: POTASSIUM CHLORIDE 20 MEQ TAB CR PO ONE (13:00)
[2019-11-19 15:40] LABS: ANION GAP 17.8 mmol/L (8-16)
[2019-11-19 15:44] LABS: POTASSIUM 2.8 mmol/L (3.5-5.1)
--- NOTE | 2019-11-19 19:06 | NUR ---
change of shift report given to oncoming RN. pt in stable condition.
--- NOTE | 2019-11-19 20:14 | Consultation ---
DATE OF CONSULTATION: 11/19/2019 Cardiology Consultation REQUESTING PHYSICIAN: Fer Robins MD REASON FOR CONSULTATION: Arrhythmia. HISTORY OF PRESENT ILLNESS: Ms. Cage is a 68-year-old female who is well known to our practice. She has a pertinent past medical history of diastolic heart failure, paroxysmal atrial fibrillation, morbid obesity, chronic kidney disease, and diabetes. She reports that she presented to the emergency department on due to worsening shortness of breath and also weight gain and fluid retention around her abdomen with worsening shortness of breath. She denies currently and at that time having any chest pain. Denies any palpitations, fever, chills, abdominal pain, nausea, vomiting or diarrhea. She notes that she was supposed to see electrophysiology last week, however, was not able to attend that appointment. We were consulted to see her due to noted episode of atrial flutter last night around 2 o'clock in the morning that lasted approximately 10 seconds. REVIEW OF SYSTEMS: Negative except as mentioned above. PAST MEDICAL HISTORY: As stated above. PAST SURGICAL HISTORY: None recently. SOCIAL HISTORY: Denies any illicit drug use or tobacco use. PHYSICAL EXAMINATION: VITAL SIGNS: Temperature 96.2, pulse 66, respiratory rate 16, blood pressure 116/69, oxygen saturation 100 on room air. GENERAL: Alert and oriented x3. Resting comfortably on the side of the bed. Does not appear to be in any acute distress. NECK: Supple. No JVD noted. LUNGS: Diminished breath sounds in posterior lower lobes, otherwise clear to auscultation. No wheezing. No rhonchi or crackles. CARDIOVASCULAR: Regular rate and rhythm. Normal S1 and S2. S3 and S4 auscultated. ABDOMEN: Soft, nontender, rounded. Normoactive bowel sounds. EXTREMITIES: Lower extremities, trace edema bilaterally. CARDIOVASCULAR MEDICATIONS: Metoprolol 25 mg p.o. daily, digoxin 0.25 mg p.o. daily, Entresto one tablet p.o. b.i.d., Eliquis 5 mg p.o. daily, Lasix 40 mg p.o. b.i.d. LABORATORY DATA: Sodium 143, potassium 2.7, BUN 9, creatinine 0.74. TELEMETRY: Atrial fibrillation. IMPRESSION: 1. Atrial fibrillation, atrial flutter with moments of poor rate control. 2. Morbid obesity. 3. Chronic diastolic heart failure. 4. Electrolyte imbalance. RECOMMENDATION: Replace potassium. Continue to monitor on telemetry. Follow up closely with electrophysiology, Dr. Gomes. No cardiac workup indicated at this time. Recent cardiac workup in the office. We will continue to monitor this patient closely. Repeat blood work and recheck potassium prior to discharge. Thank you for this consultation. We will continue to follow this patient very closely. Dictated by Michelle Garay, CEASAR MD TOD CruzV/ANTWON /[id number]
--- NOTE | 2019-11-19 20:30 | NUR ---
PATIENT SITTING UP IN BED, WATCHING TV, NO DISTRESS NOTED, SHE WANTED TO EAT SNACKS PER PT SHE HAS NO NAUSEA ANYMORE. WILL CONTINUE TO MONITOR.
[2019-11-19] MEDS: Lovastatin 10 MG PO SCH (21:00)
[2019-11-20 00:28] VITALS: BP 101/57
[2019-11-20] MEDS: ALBUTEROL/IPRATROPIUM 3 ML NEB NEB SCH ×3 (03:00→10:57)
[2019-11-20 04:00] VITALS: BP 92/55
[2019-11-20] MEDS: SUCRALFATE 1 GM TAB PO SCH ×2 (05:45→12:27)
--- NOTE | 2019-11-20 06:16 | NUR ---
D/C summary Principal dx: Fluid overload- diurese Pulmonary edema- diurese with IV lasix AECHF- diastolic- diurese Severe obesity- hba1c/lipid; 1/2 portion sizes BMI 40.4- as above NSVT Secondary Dx: PAF- HR controlled; cont metoprolol and dig; and apixaban CKD3 due to DM2- hba1c/lipids; ssi; renal at baseline. Prop: ppi on AC 11/18 f/u echo; cont lasix; check I/O 2/2 NSVT- cont BB; check lytes; f/u echo; I/O 360/1350; Systolic and Diastolic CHF- LVEF 30%; Pt states had stress test last fall? LHC needed at some point; cardio eval. d/c home stable f/u pcp 1 week and 1-2 weeks stable d/c>35mins Fer Robins MD, PhD
[2019-11-20] MEDS ORDERED: FUROSEMIDE40 MG PO (06:17)
[2019-11-20 06:25] LABS: BLOOD UREA NITROGEN 9 mg/dL (7-26); BUN/CREATININE RATIO 12 (6-25); CALCIUM 8.9 mg/dL (8.4-10.2); CARBON DIOXIDE 31 mmol/L (22-29); CHLORIDE 99 mmol/L (98-107); CREATININE, SERUM 0.78 mg/dL (0.57-1.11); EST GLOMERULAR FILTRATION RATE > 60 ML/MIN (60-); GLUCOSE 95 mg/dL (74-118); SODIUM 143 mmol/L (136-145)
--- NOTE | 2019-11-20 07:00 | NUR ---
BEDSIDE SHIFT REPORT RECEIVED FROM BLANCA BOSE. PT DENIES NEEDS AT THIS TIME.
[2019-11-20 07:56] VITALS: BP 102/60
[2019-11-20 08:56] VITALS: BP 102/60
[2019-11-20] MEDS: METOPROLOL SUCCINATE 25 MG TAB XL PO SCH (09:00)
[2019-11-20] MEDS: FUROSEMIDE INJ 10 MG/ML 4 ML VIAL IV SCH (09:09)
[2019-11-20] MEDS: LEVOTHYROXINE SODIUM 75 MCG TAB PO SCH (09:10)
[2019-11-20] MEDS: VALSARTAN/SACUBITRIL 24MG/26MG 1 EA TAB PO SCH (09:10)
[2019-11-20] MEDS: PANTOPRAZOLE 40 MG 10ML VIAL IV SCH (09:10)
[2019-11-20] MEDS: APIXABAN 5 MG TABLET PO SCH (09:10)
[2019-11-20] MEDS: DIGOXIN 0.25 MG TAB PO SCH (09:10)
[2019-11-20] MEDS: SERTRALINE HCL 50 MG TAB PO SCH (09:10)
[2019-11-20] MEDS: POTASSIUM CHLORIDE 10MEQ EA PO SCH (09:11)
[2019-11-20] MEDS ORDERED: ONDANSETRON HCL 4 MG ORAL DISINTEGRATING TAB PO PRN (10:30)
--- NOTE | 2019-11-20 11:02 | NUR ---
Order received for home O2. Patient qualifies d/t 79% on RA upon ambulation. Spoke to patient - she chooses [facility]. Notified Santos with [facility]
[2019-11-20 12:16] VITALS: BP 101/56
== END 2019-11-20 14:57 | disposition home or self-care (01) ==
LOC: ER 14:32 → ERHOLD 18:41 → MED/SURG 11-17 12:49
PROVIDERS: ADMIT Internal Medicine; ATTEND Internal Medicine
DX: I13.0 Hypertensive heart and chronic kidney disease with heart failure and stage 1 through stage 4 chronic kidney disease, or unspecified chronic kidney disease (principal); I50.33 Acute on chronic diastolic (congestive) heart failure; E66.01 Morbid (severe) obesity due to excess calories; Z68.41 Body mass index [BMI] 40.0-44.9, adult; N18.3 Chronic kidney disease, stage 3 (moderate); R00.0 Tachycardia, unspecified; E11.22 Type 2 diabetes mellitus with diabetic chronic kidney disease; I48.0 Paroxysmal atrial fibrillation; Z79.01 Long term (current) use of anticoagulants; E87.8 Other disorders of electrolyte and fluid balance, not elsewhere classified
CPT/HCPCS: 36415 ×4; 51700; 71045; 71046; 80048 ×2; 80051; 80053 ×2; 81001; 82550 ×2; 82553 ×2; 83735; 83880 ×2; 84100; 84484 ×2; 85025 ×2; 85610; 85730; 93005; 93306; 94640 ×8; 97116; 97161; 97530; 99285; C9113 ×2; G0378 ×5; J1940 ×5; J2405; S0164 ×2

== ENCOUNTER 2022-06-01 10:40 | Inpatient (IN) | payer MEDICARE ==
[~2022-06-01] VITALS: Ht 154.9 cm; Wt 75.9 kg
[~2022-06-01 10:40] MED LIST changes: +ONDANSETRON HCL4 MG PO; +PANTOPRAZOLE SO40 MG PO; +SUCRALFATE1 GM PO
[2022-06-01 12:30] LABS: BASOPHILS % 0.3 % (0.0-1.0); EOSINOPHILS # (AUTO) 0.1 (0.0-0.4); EOSINOPHILS % 0.5 % (0.0-6.0); LYMPHOCYTES % 7.5 % (18.0-39.1); MEAN CORPUSCULAR HEMOGLOBIN 31.5 pg (28-32); MEAN CORPUSCULAR HGB CONC 32.4 g/dL (31-35); MEAN CORPUSCULAR VOLUME 97.4 fL (81-99); MONOCYTES # (AUTO) 1.4 (0.2-0.8); MONOCYTES % 10.5 % (4.4-11.3); NEUTROPHILS # (AUTO) 10.8 (2.1-6.9); NEUTROPHILS % 80.6 % (38.7-80.0); PLATELET COUNT 197 x10e3/uL (140-360); RED BLOOD COUNT 3.49 x10e6/uL (3.6-5.1); RED CELL DISTRIBUTION WIDTH 17.9 % (11.7-14.4)
[2022-06-01 12:42] LABS: INR 2.29; PROTHROMBIN TIME 26.9 seconds (11.9-14.5)
[2022-06-01 12:43] LABS: PARTIAL THROMBOPLASTIN TIME 38.2 seconds (23.8-35.5)
[2022-06-01 12:50] LABS: CLARITY,URINE CLEAR (CLEAR); COLOR,URINE YELLOW (YELLOW); KETONES,URINE NEGATIVE (NEGATIVE); LEUKOCYTE ESTERASE ,URINE NEGATIVE (NEGATIVE); NITRITE,URINE NEGATIVE (NEGATIVE); PROTEIN,URINE DIPSTICK NEGATIVE (NEGATIVE); URINE UROBILINOGEN 0.2 mg/dL (0.2 - 1)
[2022-06-01 12:53] LABS: ALBUMIN 3.4 g/dL (3.5-5.0); ALBUMIN/GLOBULIN RATIO 0.9 (0.8-2.0); ANION GAP 14.7 mmol/L (8-16); CALCIUM 8.9 mg/dL (8.4-10.2); CREATININE, SERUM 0.77 mg/dL (0.57-1.11); POTASSIUM 3.7 mmol/L (3.5-5.1)
[2022-06-01 13:10] LABS: BACTERIA,URINE MODERATE /HPF; EPITHELIAL CELLS,URINE MANY /LPF; RBC,URINE 0-5 /HPF (0-5)
[2022-06-01] MEDS ORDERED: SODIUM CHLORIDE 0.9% 1000ML 1,000 ML IV STA (13:19)
[2022-06-01 15:26] LABS: CREATINE KINASE MB 0.9 ng/mL (0-5.0)
[2022-06-01] MEDS: FUROSEMIDE INJ 10 MG/ML 2 ML VIAL IV SCH (16:57)
[2022-06-01] MEDS: ONDANSETRON HCL INJ 2MG/ML 2ML 2 MG/ML VIAL IV PRN (16:57)
[2022-06-01] MEDS: SODIUM CHLORIDE FLUSH 10 ML SYR INJ PRN (16:57)
[2022-06-01] MEDS ORDERED: DEXTROSE 50% SYRINGE 50 ML IV PRN (21:30)
[2022-06-01 22:12] VITALS: BP 70/47
[2022-06-01 22:30] VITALS: BP 70/47
[2022-06-01] MEDS: ACETAMINOPHEN 325 MG TAB PO PRN (23:08)
[2022-06-01] MEDS ORDERED: ACETAMINOPHEN 325 MG TAB ONE (23:18)
[2022-06-02] VITALS (69 sets, daily range): BP systolic 49–134; BP diastolic 23–117
[2022-06-02] MEDS ORDERED: NOREPINEPHRINE 8 MG/D5W 250 ML 250 ML IV SCH (01:15)
[2022-06-02] MEDS ORDERED: NOREPINEPHRINE 8 MG/D5W 250 ML 250 ML ONE ×2 (01:27→14:50)
[2022-06-02] MEDS: INSULIN REGULAR, HUMAN 100 UNIT/1 ML SQ SCH ×4 (07:30→21:01)
[2022-06-02 08:19] LABS: BASOPHILS # (AUTO) 0.1 (0.0-0.1); BASOPHILS % 0.4 % (0.0-1.0); EOSINOPHILS # (AUTO) 0.2 (0.0-0.4); EOSINOPHILS % 1.7 % (0.0-6.0); HEMATOCRIT 34.5 % (34.2-44.1); HEMOGLOBIN 11.2 g/dL (12.0-16.0); LYMPHOCYTES # (AUTO) 1.5 (1.0-3.2); LYMPHOCYTES % 10.4 % (18.0-39.1); MEAN CORPUSCULAR HEMOGLOBIN 31.9 pg (28-32); MEAN CORPUSCULAR HGB CONC 32.5 g/dL (31-35); MEAN CORPUSCULAR VOLUME 98.3 fL (81-99); MONOCYTES # (AUTO) 1.5 (0.2-0.8); MONOCYTES % 10.5 % (4.4-11.3); NEUTROPHILS # (AUTO) 10.7 (2.1-6.9); NEUTROPHILS % 76.3 % (38.7-80.0); PLATELET COUNT 203 x10e3/uL (140-360); RED BLOOD COUNT 3.51 x10e6/uL (3.6-5.1); RED CELL DISTRIBUTION WIDTH 18.2 % (11.7-14.4)
[2022-06-02] MEDS ORDERED: ALBUMIN 5% 0.05 GM/ML BTL IV ONE (08:30)
[2022-06-02] MEDS: MIDODRINE HCL 5 MG TABLET PO SCH ×3 (08:39→15:08)
[2022-06-02] MEDS: LEVOTHYROXINE SODIUM 75 MCG TAB PO SCH (08:40)
[2022-06-02] MEDS: SERTRALINE HCL 50 MG TAB PO SCH (08:40)
[2022-06-02] MEDS: SUCRALFATE 1 GM TAB PO SCH ×4 (08:40→20:10)
[2022-06-02] MEDS: APIXABAN 5 MG TABLET PO SCH (08:40)
[2022-06-02] MEDS: PANTOPRAZOLE SOD 40 MG TABEC PO SCH (08:40)
[2022-06-02] MEDS: FUROSEMIDE INJ 10 MG/ML 2 ML VIAL IV SCH (08:41)
[2022-06-02] MEDS: VASOPRESSIN 60 UNIT in DEXTROSE 5% 50ML 57 ML IV SCH (08:44)
[2022-06-02] MEDS ORDERED: POTASSIUM CHLORIDE 10MEQ EA PO SCH (09:00)
[2022-06-02] MEDS ORDERED: SACUBITRIL PO SCH (09:00)
[2022-06-02] MEDS ORDERED: LOVASTATIN 10 MG PO SCH (09:00)
[2022-06-02] MEDS ORDERED: VALSARTAN PO SCH (09:00)
[2022-06-02] MEDS ORDERED: VALSARTAN/SACUBITRIL 24MG/26MG 1 EA TAB PO SCH (09:00)
[2022-06-02 10:06] LABS: CHOL/HDL RATIO 2.3 (3.0-3.6)
[2022-06-02 10:07] LABS: ANION GAP 22.1 mmol/L (8-16); CALCIUM 9.2 mg/dL (8.4-10.2); CREATININE, SERUM 4.08 mg/dL (0.57-1.11); POTASSIUM 5.1 mmol/L (3.5-5.1)
[2022-06-02 10:12] LABS: CREATINE KINASE MB 1.2 ng/mL (0-5.0)
[2022-06-02] MEDS ORDERED: ALBUMIN 25% 25GM 100ML 0.25 GM/ML BTL IV STA (13:21)
[2022-06-02] MEDS: SODIUM BICARBONATE 8.4% 150 ML in DEXTROSE 5% 1,000 ML IV SCH (13:22)
[2022-06-02] MEDS ORDERED: ALBUMIN 25% 25GM 100ML 100 ML IV ONE (14:00)
[2022-06-02] MEDS: NOREPINEPHRINE 8 MG/D5W 250 ML 250 ML IV SCH (15:04)
[2022-06-02] MEDS: ACETAMINOPHEN 325 MG TAB PO PRN ×5 (15:09→22:59)
[2022-06-02] MEDS ORDERED: LOPERAMIDE HCL 2 MG CAP PO ONE (15:30)
[2022-06-02 18:35] LABS: CREATINE KINASE MB 1.1 ng/mL (0-5.0)
[2022-06-02] MEDS: SIMVASTATIN 20 MG TAB PO SCH (20:10)
[2022-06-02] MEDS ORDERED: CEFTRIAXONE 1 GM VIAL ONE (20:19)
[2022-06-02] MEDS: VANCOMYCIN HCL 125 MG CAPSULE PO SCH (21:16)
[2022-06-02] MEDS: ONDANSETRON HCL INJ 2MG/ML 2ML 2 MG/ML VIAL IV PRN (21:22)
[2022-06-02] MEDS: ACETAMINOPHEN 1000 MG/100 ML IV PRN ×2 (22:14→22:58)
[2022-06-02] MEDS: PROMETHAZINE 12.5MG/ NACL 0.9% 12.5 MG/50 ML BAG IV PRN (22:19)
[2022-06-03] VITALS (91 sets, daily range): BP systolic 41–151; BP diastolic 29–139
[2022-06-03] MEDS: VASOPRESSIN 60 UNIT in DEXTROSE 5% 50ML 57 ML IV SCH ×2 (00:15→14:01)
[2022-06-03] MEDS: SODIUM BICARBONATE 8.4% 150 ML in DEXTROSE 5% 1,000 ML IV SCH (06:19)
[2022-06-03] MEDS: VANCOMYCIN HCL 125 MG CAPSULE PO SCH ×4 (06:19→22:51)
[2022-06-03 06:38] LABS: BASOPHILS # (AUTO) 0.1 (0.0-0.1); BASOPHILS % 0.3 % (0.0-1.0); EOSINOPHILS % 0.1 % (0.0-6.0); HEMATOCRIT 32.6 % (34.2-44.1); HEMOGLOBIN 10.7 g/dL (12.0-16.0); LYMPHOCYTES # (AUTO) 0.4 (1.0-3.2); LYMPHOCYTES % 2.8 % (18.0-39.1); MEAN CORPUSCULAR HEMOGLOBIN 32.2 pg (28-32); MEAN CORPUSCULAR HGB CONC 32.8 g/dL (31-35); MEAN CORPUSCULAR VOLUME 98.2 fL (81-99); MONOCYTES # (AUTO) 0.7 (0.2-0.8); MONOCYTES % 4.3 % (4.4-11.3); NEUTROPHILS # (AUTO) 14.3 (2.1-6.9); NEUTROPHILS % 91.5 % (38.7-80.0); PLATELET COUNT 194 x10e3/uL (140-360); RED BLOOD COUNT 3.32 x10e6/uL (3.6-5.1)
[2022-06-03 07:05] LABS: ALBUMIN 3.4 g/dL (3.5-5.0); ALBUMIN/GLOBULIN RATIO 1.1 (0.8-2.0); ANION GAP 23.1 mmol/L (8-16); CALCIUM 8.7 mg/dL (8.4-10.2); CREATININE, SERUM 3.57 mg/dL (0.57-1.11); POTASSIUM 5.1 mmol/L (3.5-5.1)
[2022-06-03] MEDS: SERTRALINE HCL 50 MG TAB PO SCH (08:33)
[2022-06-03] MEDS: LEVOTHYROXINE SODIUM 75 MCG TAB PO SCH (08:33)
[2022-06-03] MEDS: PANTOPRAZOLE SOD 40 MG TABEC PO SCH (08:33)
[2022-06-03] MEDS: SUCRALFATE 1 GM TAB PO SCH ×4 (08:33→21:00)
[2022-06-03] MEDS: MIDODRINE HCL 5 MG TABLET PO SCH ×3 (08:33→15:52)
[2022-06-03] MEDS: INSULIN REGULAR, HUMAN 100 UNIT/1 ML SQ SCH ×4 (08:34→21:00)
[2022-06-03] MEDS: LORATADINE 10 MG TAB PO PRN (08:58)
[2022-06-03] MEDS: ONDANSETRON HCL INJ 2MG/ML 2ML 2 MG/ML VIAL IV PRN (09:07)
[2022-06-03] MEDS: ACETAMINOPHEN 325 MG TAB PO PRN (09:07)
[2022-06-03] MEDS ORDERED: KETOROLAC TROMETHAMINE 30 MG/ML VIAL IV ONE (10:30)
[2022-06-03] MEDS ORDERED: ALBUMIN 25% 12.5GM 0.25 GM/ML BTL IV PRN (10:45)
[2022-06-03] MEDS ORDERED: SODIUM CHLORIDE 0.9% 1000ML 2,000 ML IV PRN (10:45)
[2022-06-03] MEDS ORDERED: MANNITOL 25% 12.5GM/50 ML VIAL IV PRN (10:45)
[2022-06-03] MEDS ORDERED: SODIUM CHLORIDE 0.9% 1000ML 2,000 ML ONE (10:47)
[2022-06-03] MEDS ORDERED: HEPARIN SOD (PORCINE) 1000 UNIT/ML SDV IV PRN ×2 (11:00→13:00)
[2022-06-03] MEDS: PROMETHAZINE 12.5MG/ NACL 0.9% 12.5 MG/50 ML BAG IV PRN (11:24)
[2022-06-03] MEDS: NOREPINEPHRINE 8 MG/D5W 250 ML 250 ML IV SCH (13:59)
[2022-06-03] MEDS ORDERED: BISMUTH SUBSALICYLATE 262 MG/15 ML 8OZ BTL PO PRN (16:00)
[2022-06-03 17:09] LABS: CREATININE,URINE RANDOM 58.31 mg/dL (47-110)
[2022-06-03 17:59] LABS: CREATINE KINASE MB 14.2 ng/mL (0-5.0)
[2022-06-03] MEDS: Morphine 4mg INJECTION 4 MG/ML INJ IV PRN (19:12)
[2022-06-03] MEDS: SIMVASTATIN 20 MG TAB PO SCH (21:00)
[2022-06-03] MEDS ORDERED: CEFTRIAXONE 1 GM VIAL ONE (21:25)
[2022-06-04] VITALS (85 sets, daily range): BP systolic 81–135; BP diastolic 52–116
[2022-06-04] MEDS: NOREPINEPHRINE 8 MG/D5W 250 ML 250 ML IV SCH ×2 (00:46→19:35)
[2022-06-04] MEDS: VASOPRESSIN 60 UNIT in DEXTROSE 5% 50ML 57 ML IV SCH ×2 (03:33→18:38)
[2022-06-04] MEDS ORDERED: SODIUM CHLORIDE 0.9% 1000ML 0 ML ONE (03:34)
[2022-06-04] MEDS: SODIUM BICARBONATE 8.4% 150 ML in DEXTROSE 5% 1,000 ML IV SCH (04:20)
[2022-06-04 06:49] LABS: BASOPHILS # (AUTO) 0.1 (0.0-0.1); BASOPHILS % 0.4 % (0.0-1.0); EOSINOPHILS # (AUTO) 0.1 (0.0-0.4); EOSINOPHILS % 0.5 % (0.0-6.0); HEMATOCRIT 36.6 % (34.2-44.1); HEMOGLOBIN 11.7 g/dL (12.0-16.0); LYMPHOCYTES # (AUTO) 0.9 (1.0-3.2); LYMPHOCYTES % 5.7 % (18.0-39.1); MEAN CORPUSCULAR HEMOGLOBIN 31.8 pg (28-32); MEAN CORPUSCULAR VOLUME 99.5 fL (81-99); MONOCYTES # (AUTO) 1.7 (0.2-0.8); MONOCYTES % 10.7 % (4.4-11.3); NEUTROPHILS # (AUTO) 13.3 (2.1-6.9); NEUTROPHILS % 81.6 % (38.7-80.0); PLATELET COUNT 203 x10e3/uL (140-360); RED BLOOD COUNT 3.68 x10e6/uL (3.6-5.1); RED CELL DISTRIBUTION WIDTH 18.7 % (11.7-14.4)
[2022-06-04 07:11] LABS: ALBUMIN 3.4 g/dL (3.5-5.0); ANION GAP 25.5 mmol/L (8-16); CALCIUM 8.5 mg/dL (8.4-10.2); CREATININE, SERUM 2.86 mg/dL (0.57-1.11); POTASSIUM 4.5 mmol/L (3.5-5.1)
[2022-06-04] MEDS: MIDODRINE HCL 5 MG TABLET PO SCH ×3 (07:24→15:52)
[2022-06-04] MEDS: VANCOMYCIN HCL 125 MG CAPSULE PO SCH ×3 (07:24→22:55)
[2022-06-04] MEDS: SUCRALFATE 1 GM TAB PO SCH ×4 (07:24→21:29)
[2022-06-04] MEDS: INSULIN REGULAR, HUMAN 100 UNIT/1 ML SQ SCH ×4 (07:26→21:00)
[2022-06-04] MEDS: SERTRALINE HCL 50 MG TAB PO SCH (08:25)
[2022-06-04] MEDS: LEVOTHYROXINE SODIUM 75 MCG TAB PO SCH (08:25)
[2022-06-04] MEDS: PANTOPRAZOLE SOD 40 MG TABEC PO SCH (08:25)
[2022-06-04] MEDS: LORATADINE 10 MG TAB PO PRN (09:35)
[2022-06-04] MEDS: ONDANSETRON HCL INJ 2MG/ML 2ML 2 MG/ML VIAL IV PRN (09:35)
[2022-06-04] MEDS: METHYLPREDNISOLONE SOD SUCC 40 MG/ML VIAL 1ML IV SCH ×2 (11:47→21:30)
[2022-06-04] MEDS: PROMETHAZINE 12.5MG/ NACL 0.9% 12.5 MG/50 ML BAG IV PRN (11:52)
[2022-06-04] MEDS: Morphine 4mg INJECTION 4 MG/ML INJ IV PRN (19:35)
[2022-06-04] MEDS: SIMVASTATIN 20 MG TAB PO SCH (21:29)
[2022-06-05] VITALS (90 sets, daily range): BP systolic 90–153; BP diastolic 48–129
[2022-06-05] MEDS: VASOPRESSIN 60 UNIT in DEXTROSE 5% 50ML 57 ML IV SCH ×2 (06:00→16:25)
[2022-06-05] MEDS: NOREPINEPHRINE 8 MG/D5W 250 ML 250 ML IV SCH (06:02)
[2022-06-05] MEDS: VANCOMYCIN HCL 125 MG CAPSULE PO SCH (06:02)
[2022-06-05 06:58] LABS: BASOPHILS % 0.2 % (0.0-1.0); HEMATOCRIT 33.3 % (34.2-44.1); HEMOGLOBIN 10.8 g/dL (12.0-16.0); LYMPHOCYTES # (AUTO) 0.7 (1.0-3.2); LYMPHOCYTES % 5.2 % (18.0-39.1); MEAN CORPUSCULAR HGB CONC 32.4 g/dL (31-35); MEAN CORPUSCULAR VOLUME 98.5 fL (81-99); MONOCYTES # (AUTO) 0.8 (0.2-0.8); MONOCYTES % 5.7 % (4.4-11.3); NEUTROPHILS # (AUTO) 11.9 (2.1-6.9); NEUTROPHILS % 87.9 % (38.7-80.0); PLATELET COUNT 155 x10e3/uL (140-360); RED BLOOD COUNT 3.38 x10e6/uL (3.6-5.1); RED CELL DISTRIBUTION WIDTH 18.5 % (11.7-14.4)
[2022-06-05 07:28] LABS: ALBUMIN/GLOBULIN RATIO 1.4 (0.8-2.0); ANION GAP 27.1 mmol/L (8-16); CALCIUM 8.9 mg/dL (8.4-10.2); CREATININE, SERUM 3.46 mg/dL (0.57-1.11); POTASSIUM 5.1 mmol/L (3.5-5.1)
[2022-06-05] MEDS: SUCRALFATE 1 GM TAB PO SCH ×5 (07:30→21:00)
[2022-06-05] MEDS: INSULIN REGULAR, HUMAN 100 UNIT/1 ML SQ SCH ×4 (07:30→21:00)
[2022-06-05] MEDS: MIDODRINE HCL 5 MG TABLET PO SCH ×3 (07:50→16:28)
[2022-06-05] MEDS: LEVOTHYROXINE SODIUM 75 MCG TAB PO SCH (08:30)
[2022-06-05] MEDS: PANTOPRAZOLE SOD 40 MG TABEC PO SCH (09:00)
[2022-06-05] MEDS: SERTRALINE HCL 50 MG TAB PO SCH (09:00)
[2022-06-05] MEDS: METHYLPREDNISOLONE SOD SUCC 40 MG/ML VIAL 1ML IV SCH ×2 (14:15→21:10)
[2022-06-05] MEDS: LIDOCAINE 4% PATCH TP SCH (14:24)
[2022-06-05] MEDS: SIMVASTATIN 20 MG TAB PO SCH (21:00)
[2022-06-06] VITALS (93 sets, daily range): BP systolic 92–118; BP diastolic 59–87
[2022-06-06] MEDS: LEVOTHYROXINE SODIUM 75 MCG TAB PO SCH (05:55)
[2022-06-06 06:35] LABS: BASOPHILS % 0.1 % (0.0-1.0); HEMATOCRIT 31.7 % (34.2-44.1); HEMOGLOBIN 10.4 g/dL (12.0-16.0); LYMPHOCYTES # (AUTO) 0.5 (1.0-3.2); LYMPHOCYTES % 2.9 % (18.0-39.1); MEAN CORPUSCULAR HEMOGLOBIN 31.7 pg (28-32); MEAN CORPUSCULAR HGB CONC 32.8 g/dL (31-35); MEAN CORPUSCULAR VOLUME 96.6 fL (81-99); MONOCYTES # (AUTO) 0.6 (0.2-0.8); MONOCYTES % 3.7 % (4.4-11.3); NEUTROPHILS # (AUTO) 14.6 (2.1-6.9); NEUTROPHILS % 92.4 % (38.7-80.0); PLATELET COUNT 127 x10e3/uL (140-360); RED BLOOD COUNT 3.28 x10e6/uL (3.6-5.1); RED CELL DISTRIBUTION WIDTH 18.1 % (11.7-14.4)
[2022-06-06 06:53] LABS: ALBUMIN 3.8 g/dL (3.5-5.0); ALBUMIN/GLOBULIN RATIO 1.2 (0.8-2.0); ANION GAP 23.4 mmol/L (8-16); CALCIUM 9.1 mg/dL (8.4-10.2); CREATININE, SERUM 2.8 mg/dL (0.57-1.11); POTASSIUM 4.4 mmol/L (3.5-5.1)
[2022-06-06] MEDS: SUCRALFATE 1 GM TAB PO SCH ×4 (07:30→21:04)
[2022-06-06] MEDS: INSULIN REGULAR, HUMAN 100 UNIT/1 ML SQ SCH ×4 (07:30→21:00)
[2022-06-06] MEDS: MIDODRINE HCL 5 MG TABLET PO SCH ×3 (08:00→16:00)
[2022-06-06] MEDS: VASOPRESSIN 60 UNIT in DEXTROSE 5% 50ML 57 ML IV SCH (08:56)
[2022-06-06] MEDS: Morphine 2mg Syringe 2 MG/ML SYR IV PRN ×2 (09:08→13:29)
[2022-06-06] MEDS: METHYLPREDNISOLONE SOD SUCC 40 MG/ML VIAL 1ML IV SCH ×2 (09:35→21:03)
[2022-06-06] MEDS: SERTRALINE HCL 50 MG TAB PO SCH (09:40)
[2022-06-06] MEDS: LIDOCAINE 4% PATCH TP SCH (09:40)
[2022-06-06] MEDS: PANTOPRAZOLE SOD 40 MG TABEC PO SCH (09:40)
[2022-06-06] MEDS: APIXABAN 5 MG TABLET PO SCH (09:40)
[2022-06-06] MEDS: ONDANSETRON HCL INJ 2MG/ML 2ML 2 MG/ML VIAL IV PRN (10:53)
[2022-06-06] MEDS ORDERED: ALBUMIN 25% 12.5GM 0.25 GM/ML BTL IV PRN (11:15)
[2022-06-06] MEDS ORDERED: SODIUM CHLORIDE 0.9% 250ML 250 ML IV PRN (11:30)
[2022-06-06] MEDS: LORATADINE 10 MG TAB PO PRN (12:49)
[2022-06-06] MEDS: SIMVASTATIN 20 MG TAB PO SCH (21:04)
[2022-06-07] VITALS (86 sets, daily range): BP systolic 81–110; BP diastolic 50–83
[2022-06-07] MEDS: VASOPRESSIN 60 UNIT in DEXTROSE 5% 50ML 57 ML IV SCH (03:59)
[2022-06-07] MEDS: LEVOTHYROXINE SODIUM 75 MCG TAB PO SCH (05:45)
[2022-06-07] MEDS: Morphine 2mg Syringe 2 MG/ML SYR IV PRN ×2 (06:26→17:53)
[2022-06-07 06:53] LABS: BASOPHILS % 0.2 % (0.0-1.0); HEMATOCRIT 31.8 % (34.2-44.1); HEMOGLOBIN 10.3 g/dL (12.0-16.0); LYMPHOCYTES # (AUTO) 0.4 (1.0-3.2); LYMPHOCYTES % 2.3 % (18.0-39.1); MEAN CORPUSCULAR HEMOGLOBIN 31.6 pg (28-32); MEAN CORPUSCULAR HGB CONC 32.4 g/dL (31-35); MEAN CORPUSCULAR VOLUME 97.5 fL (81-99); MONOCYTES # (AUTO) 0.5 (0.2-0.8); NEUTROPHILS % 93.7 % (38.7-80.0); PLATELET COUNT 114 x10e3/uL (140-360); RED BLOOD COUNT 3.26 x10e6/uL (3.6-5.1); RED CELL DISTRIBUTION WIDTH 18.2 % (11.7-14.4)
[2022-06-07 07:30] LABS: ALBUMIN/GLOBULIN RATIO 1.3 (0.8-2.0); ANION GAP 22.3 mmol/L (8-16); CALCIUM 9.9 mg/dL (8.4-10.2); CREATININE, SERUM 3.53 mg/dL (0.57-1.11); POTASSIUM 4.3 mmol/L (3.5-5.1)
[2022-06-07] MEDS: SUCRALFATE 1 GM TAB PO SCH ×5 (07:30→20:41)
[2022-06-07] MEDS: INSULIN REGULAR, HUMAN 100 UNIT/1 ML SQ SCH ×4 (07:30→20:41)
[2022-06-07] MEDS: MIDODRINE HCL 5 MG TABLET PO SCH ×3 (07:41→16:24)
[2022-06-07] MEDS: APIXABAN 5 MG TABLET PO SCH (09:35)
[2022-06-07] MEDS: METHYLPREDNISOLONE SOD SUCC 40 MG/ML VIAL 1ML IV SCH ×2 (09:35→20:41)
[2022-06-07] MEDS: LIDOCAINE 4% PATCH TP SCH (09:36)
[2022-06-07] MEDS: PANTOPRAZOLE SOD 40 MG TABEC PO SCH (09:42)
[2022-06-07] MEDS: SERTRALINE HCL 50 MG TAB PO SCH (09:42)
[2022-06-07] MEDS: ONDANSETRON HCL INJ 2MG/ML 2ML 2 MG/ML VIAL IV PRN ×2 (10:03→17:53)
[2022-06-07] MEDS: SIMVASTATIN 20 MG TAB PO SCH (20:41)
[2022-06-08] VITALS (87 sets, daily range): BP systolic 83–119; BP diastolic 56–95
[2022-06-08] MEDS: Morphine 2mg Syringe 2 MG/ML SYR IV PRN ×2 (04:41→21:12)
[2022-06-08] MEDS: LEVOTHYROXINE SODIUM 75 MCG TAB PO SCH (05:17)
[2022-06-08 06:30] LABS: BASOPHILS % 0.1 % (0.0-1.0); HEMATOCRIT 32.4 % (34.2-44.1); HEMOGLOBIN 10.4 g/dL (12.0-16.0); LYMPHOCYTES # (AUTO) 0.4 (1.0-3.2); LYMPHOCYTES % 2.7 % (18.0-39.1); MEAN CORPUSCULAR HEMOGLOBIN 32.1 pg (28-32); MEAN CORPUSCULAR HGB CONC 32.1 g/dL (31-35); MONOCYTES # (AUTO) 0.6 (0.2-0.8); MONOCYTES % 4.3 % (4.4-11.3); NEUTROPHILS # (AUTO) 13.6 (2.1-6.9); NEUTROPHILS % 92.1 % (38.7-80.0); PLATELET COUNT 111 x10e3/uL (140-360); RED BLOOD COUNT 3.24 x10e6/uL (3.6-5.1); RED CELL DISTRIBUTION WIDTH 18.3 % (11.7-14.4)
[2022-06-08 06:50] LABS: ALBUMIN 4.1 g/dL (3.5-5.0); ALBUMIN/GLOBULIN RATIO 1.5 (0.8-2.0); ANION GAP 21.3 mmol/L (8-16); CREATININE, SERUM 3.97 mg/dL (0.57-1.11); POTASSIUM 4.3 mmol/L (3.5-5.1)
[2022-06-08] MEDS: INSULIN REGULAR, HUMAN 100 UNIT/1 ML SQ SCH ×4 (07:27→21:00)
[2022-06-08] MEDS: MIDODRINE HCL 5 MG TABLET PO SCH ×3 (07:27→17:04)
[2022-06-08] MEDS: SUCRALFATE 1 GM TAB PO SCH ×5 (07:27→21:00)
[2022-06-08] MEDS: METHYLPREDNISOLONE SOD SUCC 40 MG/ML VIAL 1ML IV SCH ×2 (08:57→21:12)
[2022-06-08] MEDS: LIDOCAINE 4% PATCH TP SCH (08:58)
[2022-06-08] MEDS: PANTOPRAZOLE SOD 40 MG TABEC PO SCH (08:58)
[2022-06-08] MEDS: APIXABAN 5 MG TABLET PO SCH (08:58)
[2022-06-08] MEDS: SERTRALINE HCL 50 MG TAB PO SCH (08:58)
[2022-06-08] MEDS: LACTULOSE SYRUP 20 GM/30 ML UDC PO SCH (17:04)
[2022-06-08] MEDS: ACETAMINOPHEN 325 MG TAB PO PRN (17:08)
[2022-06-08] MEDS: ONDANSETRON HCL INJ 2MG/ML 2ML 2 MG/ML VIAL IV PRN (17:12)
[2022-06-09] VITALS (86 sets, daily range): BP systolic 76–111; BP diastolic 49–72
[2022-06-09] MEDS: VASOPRESSIN 60 UNIT in DEXTROSE 5% 50ML 57 ML IV SCH ×2 (01:25→08:30)
[2022-06-09] MEDS: ONDANSETRON HCL INJ 2MG/ML 2ML 2 MG/ML VIAL IV PRN (05:38)
[2022-06-09] MEDS: LEVOTHYROXINE SODIUM 75 MCG TAB PO SCH (05:38)
[2022-06-09 06:41] LABS: BASOPHILS % 0.1 % (0.0-1.0); HEMATOCRIT 32.9 % (34.2-44.1); HEMOGLOBIN 10.4 g/dL (12.0-16.0); LYMPHOCYTES # (AUTO) 0.4 (1.0-3.2); LYMPHOCYTES % 2.9 % (18.0-39.1); MEAN CORPUSCULAR HEMOGLOBIN 31.6 pg (28-32); MEAN CORPUSCULAR HGB CONC 31.6 g/dL (31-35); MONOCYTES # (AUTO) 0.7 (0.2-0.8); MONOCYTES % 4.5 % (4.4-11.3); NEUTROPHILS # (AUTO) 13.7 (2.1-6.9); NEUTROPHILS % 91.6 % (38.7-80.0); PLATELET COUNT 109 x10e3/uL (140-360); RED BLOOD COUNT 3.29 x10e6/uL (3.6-5.1); RED CELL DISTRIBUTION WIDTH 18.4 % (11.7-14.4)
[2022-06-09 07:16] LABS: ALBUMIN 4.1 g/dL (3.5-5.0); ALBUMIN/GLOBULIN RATIO 1.5 (0.8-2.0); ANION GAP 18.9 mmol/L (8-16); CALCIUM 9.8 mg/dL (8.4-10.2); CREATININE, SERUM 3.34 mg/dL (0.57-1.11); POTASSIUM 3.9 mmol/L (3.5-5.1)
[2022-06-09] MEDS: SUCRALFATE 1 GM TAB PO SCH ×4 (07:30→20:33)
[2022-06-09] MEDS: INSULIN REGULAR, HUMAN 100 UNIT/1 ML SQ SCH ×4 (07:30→20:33)
[2022-06-09 07:56] LABS: LYMPHOCYTES % (MANUAL) 4 % (19-48); MONOCYTES % (MANUAL) 2 % (3.4-9.0); NEUTROPHILS % (MANUAL) 94 % (40-74); NUCLEATED RED BLOOD CELLS 5
[2022-06-09 07:58] LABS: ANISOCYTOSIS SLIGHT; PLATELET ESTIMATE SLIGHTLY DECREASED
[2022-06-09 07:59] LABS: PLATELET MORPHOLOGY COMMENT NORMAL
[2022-06-09] MEDS: MIDODRINE HCL 5 MG TABLET PO SCH ×3 (08:45→16:00)
[2022-06-09] MEDS: APIXABAN 5 MG TABLET PO SCH (09:00)
[2022-06-09] MEDS: LACTULOSE SYRUP 20 GM/30 ML UDC PO SCH (09:00)
[2022-06-09] MEDS: PANTOPRAZOLE SOD 40 MG TABEC PO SCH (09:00)
[2022-06-09] MEDS: METHYLPREDNISOLONE SOD SUCC 40 MG/ML VIAL 1ML IV SCH ×2 (10:11→20:33)
[2022-06-09] MEDS: LIDOCAINE 4% PATCH TP SCH (10:30)
[2022-06-09] MEDS: SODIUM CHLORIDE FLUSH 10 ML SYR INJ PRN (10:31)
[2022-06-09] MEDS ORDERED: LACTULOSE20 GM/30 M PO (15:13)
[2022-06-09] MEDS ORDERED: MIDODRINE HCL5 MG PO (15:13)
[2022-06-09] MEDS ORDERED: PREDNISONE20 MG PO (15:13)
[2022-06-10] VITALS (17 sets, daily range): BP systolic 96–114; BP diastolic 57–69
[2022-06-10] MEDS: LEVOTHYROXINE SODIUM 75 MCG TAB PO SCH (05:48)
[2022-06-10] MEDS: SUCRALFATE 1 GM TAB PO SCH (07:30)
[2022-06-10] MEDS: INSULIN REGULAR, HUMAN 100 UNIT/1 ML SQ SCH (07:30)
[2022-06-10] MEDS: MIDODRINE HCL 5 MG TABLET PO SCH (08:00)
[2022-06-10] MEDS: METHYLPREDNISOLONE SOD SUCC 40 MG/ML VIAL 1ML IV SCH (08:38)
[2022-06-10] MEDS: LACTULOSE SYRUP 20 GM/30 ML UDC PO SCH (08:39)
[2022-06-10] MEDS: PANTOPRAZOLE SOD 40 MG TABEC PO SCH (08:39)
[2022-06-10] MEDS: APIXABAN 5 MG TABLET PO SCH (08:39)
[2022-06-10] MEDS: LIDOCAINE 4% PATCH TP SCH (08:39)
[2022-06-10] MEDS: Morphine 2mg Syringe 2 MG/ML SYR IV PRN (08:48)
== END 2022-06-10 13:32 | disposition hospice, home (50) | DRG 291 ==
LOC: ER 11:02 → ERHOLD 14:03 → MED/SURG 22:28 → ICU 06-02 00:23
PROVIDERS: ADMIT Internal Medicine; ATTEND Internal Medicine
PROC: 02HV33Z Insertion of Infusion Device into Superior Vena Cava, Percutaneous Approach (ICD-10-PCS; 2022-06-02)
PROC: 5A1D70Z Performance of Urinary Filtration, Intermittent, Less than 6 Hours Per Day (ICD-10-PCS; principal; 2022-06-03)
DX: I13.2 Hypertensive heart and chronic kidney disease with heart failure and with stage 5 chronic kidney disease, or end stage renal disease (principal); I50.43 Acute on chronic combined systolic (congestive) and diastolic (congestive) heart failure; J96.01 Acute respiratory failure with hypoxia; R57.0 Cardiogenic shock; N18.6 End stage renal disease; N39.0 Urinary tract infection, site not specified; E87.2 Acidosis; I31.3 Pericardial effusion (noninflammatory); N17.9 Acute kidney failure, unspecified; E11.22 Type 2 diabetes mellitus with diabetic chronic kidney disease; Z99.2 Dependence on renal dialysis; Z79.4 Long term (current) use of insulin; E03.9 Hypothyroidism, unspecified; I48.0 Paroxysmal atrial fibrillation; Z79.01 Long term (current) use of anticoagulants; Z95.810 Presence of automatic (implantable) cardiac defibrillator; E87.5 Hyperkalemia; R62.7 Adult failure to thrive; Z68.31 Body mass index [BMI] 31.0-31.9, adult; K75.81 Nonalcoholic steatohepatitis (NASH); Z53.29 Procedure and treatment not carried out because of patient's decision for other reasons; I27.20 Pulmonary hypertension, unspecified; Z95.0 Presence of cardiac pacemaker; K80.80 Other cholelithiasis without obstruction; Z20.822 Contact with and (suspected) exposure to COVID-19; E11.69 Type 2 diabetes mellitus with other specified complication; E78.5 Hyperlipidemia, unspecified; J44.9 Chronic obstructive pulmonary disease, unspecified; Z99.81 Dependence on supplemental oxygen; Z79.899 Other long term (current) drug therapy
CPT/HCPCS: 0223U; 36415; 70450; 71045; 76700; 76705; 76770; 80048; 80053; 80061; 81001; 81050; 82140; 82248; 82550; 82553; 82575; 82948; 83036; 83605; 83880; 84156; 84484; 85025; 85610; 85730; 86704; 86705; 86706; 87040; 87340; 93005; 93306; 94799; 96361; 96372; 99251; 99284; J0696; J1644; J1817; J1885; J1940; J2150; J2270; J2405; J2550; J2920; J7030; J7070; P9045; P9047